=== PATIENT | female | born 1990 | race Caucasian/White ===

== ENCOUNTER 2021-03-25 09:11 | Outpatient (REF) | payer OTHER, SELFPAY ==
--- NOTE | ~2021-03-25 | XR_ITS ---
EXAMINATION: XR CHEST CLINICAL INFORMATION: Cough. COMPARISON: Chest 07/29/2014 TECHNIQUE: 2 views of the chest were obtained. FINDINGS: The lungs are well-expanded with increased haziness groundglass density throughout both lower lobes likely from underlying parenchymal inflammatory process.. The upper lungs are clear. The heart size and pulmonary vascularity is normal. No gross bony abnormality seen. XR/XR chest 2V IMPRESSION: Increased haziness throughout both lower lobe suspicious for lung infiltrative or inflammatory process. Findings could represent Covid Infiltrate.
[2021-03-25 09:54] LABS: MANUAL DIFF FLAG NO
[2021-03-25 10:01] LABS: Basophils Percent Auto 0.2 % (0-2); Eosinophils Absolute Auto 0.1 X10*3/uL (0.0-0.4); Eosinophils Percent Auto 1.3 % (0-4); Hematocrit 43.3 % (37-47); Hemoglobin 14.2 g/dl (12.0-16.0); Imm Gran Abs Auto 0.01 X10*3/uL (0.00-0.03); Imm Gran Pct Auto 0.2 % (0.0-0.4); Lymphocytes Absolute Auto 1.3 X10*3/uL (1.2-4.9); Lymphocytes Percent Auto 24.5 % (20-40); Mean Corpuscular HGB Conc 32.8 g/dl (31.0-35.0); Mean Corpuscular Hemoglobin 29.5 pg (27.0-33.0); Mean Corpuscular Volume 89.8 fL (80-98); Mean Platelet Volume 9.9 fL (9.4-12.3); Monocytes Absolute Auto 0.4 X10*3/uL (0.1-1.2); Monocytes Percent Auto 7.4 % (2-11); Neutrophils Absolute Auto 3.5 X10*3/uL (2.0-8.3); Neutrophils Percent Auto 66.4 % (45-73); Platelet Count 222 X10*3/uL (160-400); Red Blood Count 4.82 X10*6/uL (4.20-5.50); Red Cell Distribution Width 12.4 % (11.0-16.0); White Blood Count 5.3 X10*3/uL (4.8-10.8)
[2021-03-25 10:24] LABS: Alanine Aminotransferase 52 U/L (0-31); Albumin Level 4.4 g/dL (3.5-5.0); Alkaline Phosphatase 35 U/L (39-117); Anion Gap 14 (12-20); Aspartate Amino Transferase 38 U/L (5-31); Bilirubin Total 0.6 mg/dL (0.0-1.0); Blood Urea Nitrogen 9 mg/dL (9-16); Calcium 8.9 mg/dL (8.4-10.2); Carbon Dioxide 28 mmol/L (22-29); Chloride 106 mmol/L (96-108); Cholesterol 102 mg/dL; Estimated Glomerular Filt Rate > 60; Glucose Fasting 123 mg/dL (60-99); HDL Cholesterol 23 mg/dL; LDL Cholesterol Calculated 52 mg/dl; Potassium 4.6 mmol/L (3.3-5.1); Sodium 143 mmol/L (135-145); Total Protein 7.3 g/dL (6.5-8.0); Triglycerides 139 mg/dL
[2021-03-25 10:43] LABS: TSH reflex Free T4 1.96 uIU/mL (0.32-4.0)
== END 2021-03-25 09:12 | disposition home or self-care (01) ==
LOC: HO.LAB 09:11
PROVIDERS: Absent Provider Nurse Practitioner Family; PCP Internal Medicine; Visit Provider Internal Medicine
DX: R05 Cough (principal); E03.9 Hypothyroidism, unspecified; E78.5 Hyperlipidemia, unspecified; E66.9 Obesity, unspecified
CPT/HCPCS: 36415; 71046; 80053; 80061; 84443; 85025

== ENCOUNTER 2021-07-20 17:52 | Outpatient (REF) | payer OTHER, SELFPAY ==
[2021-07-20 18:42] LABS: Influenza A PCR NEGATIVE (Negative); Influenza B PCR NEGATIVE (Negative); Resp Syncy Virus RNA Qual PCR NEGATIVE (Negative); SARS COV2 PCR INHOUSE NEGATIVE (Negative)
== END 2021-07-20 17:53 | disposition home or self-care (01) ==
LOC: HO.LNP 17:52
PROVIDERS: Visit Provider Internal Medicine
DX: Z20.822 Contact with and (suspected) exposure to COVID-19 (principal); R43.9 Unspecified disturbances of smell and taste
CPT/HCPCS: 0241U

== ENCOUNTER 2022-12-15 10:20 | Outpatient (REF) | payer OTHER, SELFPAY ==
[2022-12-15 10:34] LABS: MANUAL DIFF FLAG NO
[2022-12-15 10:48] LABS: Basophils Percent Auto 0.5 % (0-2); Eosinophils Absolute Auto 0.3 X10*3/uL (0.0-0.4); Eosinophils Percent Auto 4.5 % (0-4); Hematocrit 40.3 % (37.0-47.0); Imm Gran Abs Auto 0.01 X10*3/uL (0.00-0.03); Imm Gran Pct Auto 0.2 % (0.0-0.4); Lymphocytes Absolute Auto 1.7 X10*3/uL (1.2-4.9); Lymphocytes Percent Auto 28.5 % (20-40); Mean Corpuscular HGB Conc 32.3 g/dl (31.0-35.0); Mean Corpuscular Volume 83.6 fL (80.0-98.0); Mean Platelet Volume 9.8 fL (9.4-12.3); Monocytes Absolute Auto 0.6 X10*3/uL (0.1-1.2); Monocytes Percent Auto 9.6 % (2-11); Neutrophils Absolute Auto 3.3 x10*3/uL (2.0-8.3); Neutrophils Percent Auto 56.7 % (45-73); Platelet Count 237 X10*3/uL (160-400); Red Blood Count 4.82 X10*6/uL (4.20-5.50); Red Cell Distribution Width 13.9 % (11.0-16.0); White Blood Count 5.8 X10*3/uL (4.8-10.8)
[2022-12-15 11:34] LABS: Alanine Aminotransferase 23 U/L (0-31); Albumin Level 4.2 g/dL (3.5-5.0); Alkaline Phosphatase 71 U/L (39-117); Anion Gap 14 (12-20); Aspartate Amino Transferase 21 U/L (5-31); Bilirubin Total 0.4 mg/dL (0.0-1.0); Blood Urea Nitrogen 14 mg/dL (9-16); Calcium 9.2 mg/dL (8.4-10.2); Carbon Dioxide 22 mmol/L (22-29); Chloride 108 mmol/L (96-108); Cholesterol 133 mg/dL; Estimated Glomerular Filt Rate > 60; Glucose Fasting 99 mg/dL (60-99); HDL Cholesterol 29 mg/dL; LDL Cholesterol Calculated 83 mg/dl; Potassium 4.2 mmol/L (3.3-5.1); Sodium 140 mmol/L (135-145); Total Protein 7.1 g/dL (6.5-8.0); Triglycerides 107 mg/dL
[2022-12-15 12:18] LABS: Folate 18.1 ng/mL (> or = 4.0); TSH reflex Free T4 2.17 uIU/mL (0.32-4.0); Vitamin B12 709 pg/mL (200-900); Vitamin D 25-OH Total 35.3 ng/mL (>30)
== END 2022-12-15 10:21 | disposition home or self-care (01) ==
LOC: HO.LAB 10:20
PROVIDERS: PCP Internal Medicine; Visit Provider Nurse Practitioner Family
DX: Z00.00 Encounter for general adult medical examination without abnormal findings (principal)
CPT/HCPCS: 36415; 80053; 80061; 82306; 82607; 82746; 84443; 85025

== ENCOUNTER 2023-05-24 15:35 | Outpatient (AMB) | payer OTHER, SELFPAY ==
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
[2023-05-24 15:42] VITALS: BP 132/72; PULSE 93; O2SAT 95; BMI 45.6
== END 2023-05-24 17:08 | disposition home or self-care (01) ==
PROVIDERS: PCP Internal Medicine; Visit Provider Internal Medicine
DX: M54.9 Dorsalgia, unspecified (principal)
CPT/HCPCS: 99213

== ENCOUNTER 2023-12-18 15:54 | Outpatient (AMB) | payer OTHER, SELFPAY ==
--- NOTE | 2023-12-18 16:00 | A.OFFPC_ITS ---
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: No Accompanied by: Self / Same As Patient Allergies aspirin [Aspirin] Allergy (Intermediate, Verified 12/18/23 16:11) swelling Sulfa (Sulfonamide Antibiotics) Allergy (Intermediate, Verified 12/18/23 16:11) Swelling sulfur Allergy (Intermediate, Verified 12/18/23 16:11) swelling Iodinated Contrast Media [Iodinated Contrast Media - IV Dye] Allergy (Mild, Verified 12/18/23 16:11) Patient described tongue thickness Medication List - Last Reconciled 12/18/23 by Kim Dawson MD No Known Home Meds Tobacco use date assessed: 12/18/23 Dental Screening Dental Screen Date: 12/18/23 Did you have a dental visit in the last 12 months?: Yes Did you have a dental problem in the last 6 months where you did not have access to dental care?: No Was dental information given to patient?: Patient has dentist HPI HPI Comments History of Present Illness Details This is a 33-year-old female with morbid obesity that comes for her physical exam. BMI is 41.5 and she declines weight loss surgery. I will start her on WEgovy for her weight anxiety effects were advised. Last labs were normal. No chest pain or shortness of breath. Pap smear was over 4 years ago. [facility] Medical History (Updated 12/18/23 @ 16:17 by Kim Dawson MD) Physical exam Morbid obesity Cough Sinusitis Eczema Obesity Surgical History Previous section Family History Father No problems noted. Mother Lupus Family/Other FH: mental illness Mental health disorder Daughter In good health Sister In good health Brother In good health Social History Housing: House Alcohol intake: never Patient Tobacco Use Status: Never used Tobacco e-Cigarette/Vaping Use: Never Used Second Hand Smoke Exposure: No service: No Current occupational status: unemployed Cognitive needs: No Hearing needs: No Vision needs: No Questionnaire PHQ-9 Over the last 2 weeks, how often have you been bothered by any of the following problems? 1. Little interest or pleasure in doing things: not at all 2. Feeling down, depressed, or hopeless: not at all 3. Trouble falling or staying asleep, or sleeping too much: not at all 4. Feeling tired or having little energy: not at all 5. Poor appetite or overeating: not at all 6. Feeling bad about yourself - or that you are a failure or have let yourself or your family down: not at all 7. Trouble concentrating on things, such as reading the newspaper or watching television: not at all 8. Moving or speaking so slowly that other people could have noticed. Or the opposite - being so fidgety or restless that you have been moving around a lot more than usual: not at all 9. Thoughts that you would be better off or of hurting yourself in some way: not at all Total score: 0 Depression Screening Interpretation: Negative Depression Screening Done: Yes 28307 - PHQ-9 Billing: Yes Source: Developed by Drs. Ephraim Danielson, Kay Hall, Ben Arellano and colleagues, with an educational marlon from [employer]. Thrive Questionnaire Date Thrive assessed: 12/18/23 I am a: Patient What is your living situation today?: I have a steady place to live Within the past 12 months, did the food you bought not last and you didn't have the money to get more?: Never true Within the past 12 months, did you worry whether your food would run out before you got money to buy more?: Never true Do you have trouble paying for medicines?: No Do you have trouble getting transportation to medical appointments?: No Do you have trouble paying your heating and electricity bill?: No Do you have trouble taking care of your child, family member or friend?: No Do you have trouble with day-to-day activities such as bathing, preparing meals, shopping, managing finances, etc.?: No Are you currently unemployed and looking for a job?: No Are you interested in more education?: No Please select the resources that you would like help with: None Currently or been in a relationship where the following occur: no concerns reported THRIVE Score: 0 AUDIT C Alcohol Use Questionnaire (AUDIT-C) 1. How often do you have a drink containing alcohol?: Never Total Score: 0 DEENA-7 AMB Questionnaire DEENA-7 Date DEENA - 7 assessed: 12/18/23 Feeling nervous, anxious, or on edge: 0 = Not at all Not being able to stop or control worryin = Not at all Worrying too much about different things: 0 = Not at all Trouble relaxin = Not at all Being so restless that it is hard to sit still: 0 = Not at all Becoming easily annoyed or irritable: 0 = Not at all Feeling afraid as if something awful might happen: 0 = Not at all Total DEENA-7 score (0-4 normal; 5-9 mild; 10-14 moderate; 15-21 severe): 0 Source: Developed by Drs. Ephraim Danielson, Kay Hall, Ben Arellano and colleagues, with an educational marlon from [employer]. DEENA-7 Assessment Billing DEENA-7 Assessment Tool: DEENA-7 Assessment 70792 Review of Systems Const All systems reviewed & are unremarkable except as noted in HPI and below Eyes Reports no additional complaints, Denies change in vision and Denies other visual disturbances Card Denies chest pain at rest, Denies chest pain with activity, Denies edema, Denies irregular heart rhythm, Denies claudication, Denies dyspnea, Denies dyspnea on exertion, Denies orthopnea, Denies paroxysmal nocturnal dyspnea and Denies slow heart rate Resp Denies cough, Denies dyspnea and Denies dyspnea on exertion GI Denies abdominal pain, Denies change in bowel habits, Denies excessive flatus, Denies nausea and Denies vomiting Denies urinary incontinence, Denies urinary hesitancy and Denies urinary urgency Physical exam (Primary Care) Vital Signs: Last Vital Signs BP 112/70 12/18/23 16:02 BMI result Body Mass Index 41.5 Tobacco/Smoking Status: Tobacco use Status Tobacco use date assessed 12/18/23 12/18/23 16:06 Patient Tobacco Use Status Never used Tobacco 12/18/23 16:00 e-Cigarette/Vaping Use Never Used 12/18/23 16:00 PHQ-9: PHQ-9 Score PHQ-9: Total score 0 12/18/23 16:06 Depression Screening Interpretation: Negative Thrive Assessment: Date of Thrive Assessment Date Thrive assessed 12/18/23 12/18/23 16:06 Currently or been in a relationship where the following occur: no concerns reported Const Orientation/consciousness: patient oriented x3 HENMT Head: Yes normal to inspection, Yes normocephalic and Yes atraumatic Ears: external ears normal Eyes General: appearance normal, both eyes and all related structures Eyelids: Yes eyelids normal Conjunctivae: conjunctivae normal Neck Neck: Yes normal visual inspection and Yes supple Resp Effort & Inspection: normal respiratory effort Auscultation: clear to auscultation bilaterally Cardio Jugular venous distension: no JVD Rate: regular rate Rhythm: regular rhythm Heart sounds: S1 normal heart sound present and S2 normal heart sound present GI Inspection: Yes normal to inspection Palpation (GI): Soft to palpation and nontender Auscultation: normal bowel sounds Skin General skin exam: no rashes or lesions noted Neuro General: patient oriented x3 and no focal motor deficits Extrem General: Yes full ROM Psych Appearance: grossly normal Assessment and Plan Assessment & Plan (1) Physical exam: Code(s): Z00.00 - Encounter for general adult medical examination without abnormal findings Plan: Repeat in a year. (2) Morbid obesity: Code(s): E66.01 - Morbid (severe) obesity due to excess calories Plan: Start Wegovy. BMI goal is less than 30. 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
[2023-12-18 16:02] VITALS: BP 112/70; BMI 41.5
== END 2023-12-18 16:24 | disposition home or self-care (01) ==
PROVIDERS: Visit Provider Internal Medicine
DX: Z00.00 Encounter for general adult medical examination without abnormal findings (principal); E66.01 Morbid (severe) obesity due to excess calories; Z68.41 Body mass index [BMI] 40.0-44.9, adult
CPT/HCPCS: 99395

== ENCOUNTER 2024-01-01 09:56 | Outpatient (AMB) | payer OTHER, SELFPAY ==
--- NOTE | 2024-01-01 10:06 | MHC.OFFVIS ---
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 Intake Note: Having pelvic pain, feels like something is moving when she is laying down to the side Pattern Hand Required: Yes Pattern Hand Language: Finnish Information Interpreted: non-clinical & clinical Nuclear Reactor Technician: Nuclear Reactor Technician Present (Aidyn) Allergies aspirin [Aspirin] Allergy (Intermediate, Verified 01/01/24 10:10) swelling Sulfa (Sulfonamide Antibiotics) Allergy (Intermediate, Verified 01/01/24 10:10) Swelling sulfur Allergy (Intermediate, Verified 01/01/24 10:10) swelling Iodinated Contrast Media [Iodinated Contrast Media - IV Dye] Allergy (Mild, Verified 01/01/24 10:10) Patient described tongue thickness Medication List - Last Reconciled 01/01/24 by Pilar Jacobs CNM No Known Home Meds Is last menstrual period known: Yes Last menstrual period: 12/29/23 Post menopausal: No HPI HPI 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,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: Details: 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 She has started trying to lose weight and has lost from about 280 something to 256 today and feels good about that she is trying to eat better and she is lifting weights and doing cardio as well. She last saw her primary care provider a couple of months ago. She says she used to get very very irregular periods but the last 4 months they have been coming more regular but they are light and short. She is working on getting healthier so she can have more energy to take care of her 2 children by herself as a single mother. Her 1st child also has autism she is bring her to the dentist today. She has been feeling something inside her and she told registered medical assistant she is feeling movement. On abdominal palpation there has a solid large abdominal mass right side of the abdomen. [facility] Medical History (Updated 01/01/24 @ 11:13 by Pilar Jacobs CNM) Physical exam Morbid obesity Cough Sinusitis Eczema Obesity Surgical History (Updated 01/01/24 @ 10:12 by RAMESH Messina) Hx of tubal ligation Previous section Family History Father No problems noted. Mother Lupus Family/Other FH: mental illness Mental health disorder Daughter In good health Sister In good health Brother In good health Social History Housing: House Alcohol intake: never Patient Tobacco Use Status: Never used Tobacco e-Cigarette/Vaping Use: Never Used Second Hand Smoke Exposure: No service: No Current occupational status: unemployed Cognitive needs: No Hearing needs: No Vision needs: No Female Reproductive History Menstrual Age of Menarche: 10 Date of last menstrual period: 12/29/23 control method: other (tubal ligation) Total pregnancies: 2 Full term: 2 Number of Living Children: 2 Physical Exam Vital Signs: Last Vital Signs BP 104/60 01/01/24 10:07 BMI result Body Mass Index 40.1 Const General: healthy appearing, comfortable, no acute distress, well developed and alert Nutritional Appearance: average body habitus and obese Orientation/consciousness: patient oriented x3 Limitations: no limitations HEENT Head: Yes normocephalic Neck Neck: Yes normal visual inspection Chest Chest palpation & inspection: normal inspection of the chest Breast/axilla inspection: normal inspection of the breasts and normal inspection of the axillae Breast/axilla palpation: normal palpation of the breasts and normal palpation of the axillae Resp Effort & Inspection: normal respiratory effort GI Other: There is palpable solid mass right side of abdomen. To right of umbilicus. Inspection: Yes normal to inspection, No Abdominal wall edema and No distended Palpation (GI): Soft to palpation, nontender and Other GI palpation findings present (Firm round abdominal mass to right of umbilicus orange sized.) Other: Limited by adipose however external exam within normal limits cervix multiparous pink smooth with normal-appearing yellowish mucus difficult to feel size of uterus but nontender adnexa nontender good tone with Kegel. General: Yes bladder normal to palpation External Female Exam: normal external appearance and normal appearance of the urethra Speculum Exam - Vagina: normal appearance of the vagina, normal palpation and normal vaginal discharge Speculum Exam - Cervix: normal appearance of the cervix, normal palpation and nontender Bimanual exam- vagina & uterus: normal bimanual exam, normal palpation, bladder normal to palpation, normal palpation, uterine mobility normal, No Cervical tenderness present, non-tender and no cervical motion tenderness Bimanual Exam- Adnexa, other: normal adnexae, no masses, normal and No adnexal tenderness Neuro General: patient oriented x3 Results Reviewed Results Reviewed: test done here in the office is negative. Assessment & Plan Assessment & Plan (1) Morbid obesity: Code(s): E66.01 - Morbid (severe) obesity due to excess calories Category: Medical (2) Abdominal mass: Code(s): R19.00 - Intra-abdominal and pelvic swelling, mass and lump, unspecified site Category: Medical (3) Encounter for gynecological examination with Papanicolaou smear of cervix: Code(s): Z01.419 - Encounter for gynecological examination (general) (routine) without abnormal findings Category: Medical (4) History of irregular menstrual cycles: Code(s): Z87.42 - Personal history of other diseases of the female genital tract Category: Medical (5) History of irregular menstrual cycles: Code(s): Z87.42 - Personal history of other diseases of the female genital tract Category: Medical (6) Screening for cervical cancer: Comment: 01/01/24 pap done...... Code(s): Z12.4 - Encounter for screening for malignant neoplasm of cervix Category: Medical Plan -----Discussed in this visit the following: healthy balanced diet, regular and consistent exercise, getting recommended health screens, doing the best she can for her particular health concerns, kegel exercises, pap smear screening and followup recommendations, mammography screening and SBE, normal changes in cycles in her life stage--- . I applauded her efforts at weight loss and her goals of improved health so she can be there for her 2 children and improve her health as well. She said that she had been screened for diabetes in everything was fine. Discussed in general terms the challenges of obesity and challenges for her health and efforts she is engaging in to manage this including dietary changes water intake attention to sleep inclusion of a regular exercise have it and dealing with the may need stressors of life that can contribute to obesity in general. Encouraged her to continue in all have her best efforts. She is aware all of these contributing factors as she attributes them to her weight gain as she was dealing with the stresses of parenting 2 young children with health challenges. I discussed the relationship between obesity and elevated hormonal levels and irregular menses she says her periods have improved since she started to lose weight and they been more normal so the last 4 months though on questioning at the very end it seemed that it is unclear how normal they are in length. ----- On physical exam there was a very firm abdominal mass right side that was mobile nontender. Out of an abundance of caution, despite her having had her tubes tied and reported no sexual relations for the last 2 years I had her do a test before leaving the office it was negative. I am ordering a pelvic ultrasound to assess for pelvic mass perhaps a fibroid may explain the finding if there has no clear finding I will have her follow-up with her primary care provider. We will have a follow-up visit after the ultrasound. Orders: Orders US pelvic and transvaginal Today E66.01 - Morbid (severe) obesity due to excess calories, R19.00 - Intra-abdominal and pelvic swelling, mass and lump, unspecified site, Z01.419 - Encounter for gynecological examination (general) (routine) without abnormal findings, Z12.4 - Encounter for screening for malignant neoplasm of cervix, Z87.42 - Personal history of other diseases of the female genital tract US abdomen complete Today R19.00 - Intra-abdominal and pelvic swelling, mass and lump, unspecified site, Z87.42 - Personal history of other diseases of the female genital tract Coding Level of Care Code New Pt Prev Care 18-39yr([id number] Diagnoses Morbid obesity E66.01 Abdominal mass R19.00 Encounter for gynecological examination with Papanicolaou smear of cervix Z01.419 History of irregular menstrual cycles Z87.42 Screening for cervical cancer Z12.4
[2024-01-01 10:07] VITALS: BP 104/60; BMI 40.1
== END 2024-01-01 12:14 | disposition home or self-care (01) ==
LOC: HO.HWSM 09:56
PROVIDERS: PCP Internal Medicine; Visit Provider Advanced Practice Midwife
DX: Z01.419 Encounter for gynecological examination (general) (routine) without abnormal findings (principal); R19.00 Intra-abdominal and pelvic swelling, mass and lump, unspecified site; E66.01 Morbid (severe) obesity due to excess calories; Z87.42 Personal history of other diseases of the female genital tract
CPT/HCPCS: 99385

== ENCOUNTER 2024-01-01 09:56 | Outpatient (REF) | payer OTHER, SELFPAY ==
[2024-01-02 09:44] LABS: Bacterial Vaginosis PCR NEGATIVE (Negative); Candida Group PCR NOT DETECTED (Not Detect); Candida glab krusei PCR NOT DETECTED (Not Detect); Trichomonas vaginalis PCR NOT DETECTED (Not Detect)
[2024-01-02 10:14] LABS: CT PCR NOT DETECTED (Not Detect.); NG PCR NOT DETECTED (Not Detect.)
[2024-01-12 00:38] LABS: HPV mRNA E6/E7 rflx Not Detected (Not Detected)
== END 2024-01-01 09:57 | disposition home or self-care (01) ==
LOC: HO.LNP 09:56
PROVIDERS: PCP Internal Medicine; Visit Provider Advanced Practice Midwife
DX: E66.01 Morbid (severe) obesity due to excess calories (principal); R19.00 Intra-abdominal and pelvic swelling, mass and lump, unspecified site; Z87.42 Personal history of other diseases of the female genital tract; Z12.4 Encounter for screening for malignant neoplasm of cervix; Z68.41 Body mass index [BMI] 40.0-44.9, adult
CPT/HCPCS: 0352U; 0353U; 87624; 88142; 99385

== ENCOUNTER 2024-01-02 11:36 | Outpatient (REF) | payer OTHER, SELFPAY ==
--- NOTE | ~2024-01-02 | US_ITS ---
EXAMINATION: US ABDOMEN COMPLETE CLINICAL INFORMATION: Abdominal mass. COMPARISON: CT scan abdomen and pelvis 09/27/2012 TECHNIQUE: Real-time imaging of the abdominal viscera. FINDINGS: PANCREAS: The pancreas is not well seen due to bowel gas. ABDOMINAL AORTA: The mid and distal segments are normal in caliber. The proximal abdominal aorta is mostly obscured by bowel gas. INFERIOR VENA CAVA: The inferior vena cava is obscured by bowel gas. LIVER: The liver is enlarged measuring 17.1 cm. The liver contour is normal. There is mild diffuse increased liver parenchymal echogenicity, consistent with mild hepatic steatosis. No focal hepatic lesion. There is no intrahepatic biliary duct dilatation seen. GALLBLADDER: Normal. The gallbladder is physiologically distended without evidence of stones, sludge, polyps, wall thickening or pericholecystic fluid. No sonographic Reyes's sign. COMMON BILE DUCT: Normal in caliber measuring 0.3 cm in diameter. RIGHT KIDNEY: 0.6 x 0.6 x 0.8 cm nonobstructing upper pole calculus is seen. No hydronephrosis. No focal parenchymal lesions. The kidney measures 11.8 cm in maximum dimension. LEFT KIDNEY: Normal. No hydronephrosis. No renal calculi or focal parenchymal lesions. The kidney measures 11.6 cm in maximum dimension. SPLEEN: The spleen is upper limits of normal in size. The spleen measures 13.0 cm in maximum dimension. FREE FLUID: None. US/US abdomen complete IMPRESSION: 1. Mild hepatic steatosis. 2. 0.8 cm nonobstructing calculus in the upper pole of the right kidney. 3. The pancreas, proximal abdominal aorta and inferior vena cava are obscured by bowel gas.
--- NOTE | ~2024-01-02 | US_ITS ---
EXAMINATION: US PELVIS CLINICAL INFORMATION: Pelvic mass. COMPARISON: CT pelvis 06/25/2013 TECHNIQUE: Ultrasound of the pelvis is performed using both transabdominal and transvaginal transducers along with Doppler. Transvaginal imaging is performed due to inadequate visualization transabdominally. FINDINGS: The uterus measures 8.4 x 4.5 x 5.1 cm. Endometrial stripe is 1.4 cm. The right ovary appears normal measuring 2.6 x 1.4 x 1.6 cm. The left ovary is not seen. There is a solid lobulated mass midline pelvis superior to the uterus with internal vascularity. The mass measures 14.7 x 9.0 x 16.5 cm. US/US pelvic and transvaginal IMPRESSION: 14.7 x 9.0 x 16.5 cm mass in the pelvis that appears separate from the uterus and right ovary. The left ovary is not seen. The mass could be left ovarian in origin or be obscuring the ovary. The mass is suspicious for neoplasm. Recommend CT of the abdomen and pelvis with intravenous and oral contrast to define the anatomic origin of the mass and guide management.
== END 2024-01-02 11:37 | disposition home or self-care (01) ==
LOC: HO.US 11:36
PROVIDERS: PCP Internal Medicine; Visit Provider Advanced Practice Midwife
DX: R19.00 Intra-abdominal and pelvic swelling, mass and lump, unspecified site (principal); Z87.42 Personal history of other diseases of the female genital tract; Z98.51 Tubal ligation status
CPT/HCPCS: 76700; 76830; 76856

== ENCOUNTER 2024-01-03 09:11 | Outpatient (REF) | payer OTHER, SELFPAY ==
[2024-01-03 10:25] LABS: HCG Quantitative 102 mIU/mL
[2024-01-03 10:26] LABS: Lactate Dehydrogenase 7452 U/L (122-220)
[2024-01-05 09:03] LABS: Carbohydrate Antigen 19-9 26 U/mL (<34)
[2024-01-05 13:23] LABS: Alpha Fetoprotein 3.6 ng/mL
[2024-01-09 08:53] LABS: CA-125 54 U/mL (<35)
[2024-01-11 18:57] LABS: Inhibin B 93 pg/mL
== END 2024-01-03 09:12 | disposition home or self-care (01) ==
LOC: HO.LAB 09:11
PROVIDERS: PCP Internal Medicine; Visit Provider Advanced Practice Midwife
DX: R19.00 Intra-abdominal and pelvic swelling, mass and lump, unspecified site (principal); Z98.51 Tubal ligation status; Z87.42 Personal history of other diseases of the female genital tract
CPT/HCPCS: 36415; 82105; 83520; 83615; 84702; 86301; 86304; 99212

== ENCOUNTER 2024-01-03 09:34 | Outpatient (AMB) | payer OTHER, SELFPAY ==
--- NOTE | 2024-01-03 09:36 | MHC.OFFVIS ---
Vital Signs 01/03/24 09:37 Height 5 ft 6.5 in BP 116/72 Intake Visit Reasons: Follow up Information Interpreted: clinical only Allergies aspirin [Aspirin] Allergy (Intermediate, Verified 01/03/24 09:41) swelling Sulfa (Sulfonamide Antibiotics) Allergy (Intermediate, Verified 01/03/24 09:41) Swelling sulfur Allergy (Intermediate, Verified 01/03/24 09:41) swelling Iodinated Contrast Media [Iodinated Contrast Media - IV Dye] Allergy (Mild, Verified 01/03/24 09:41) Patient described tongue thickness Is last menstrual period known: Yes Last menstrual period: 12/29/23 HPI HPI Follow up: Details: This was a 45 minute muim-zr-viue visit with patient reviewing her pelvic and abdominal ultrasounds from 01/02/2024 resulted my discovery of an abdominal mass at the visit on 01/01/2024. Please see the ultrasound details and discussion previous notes in the chart. I did review the ultrasound findings with ward helper yesterday afternoon when they arrived and his recommendations were followed for lab work, that was done this morning. I communicated with the patient yesterday after I receive the results and she went to the lab this morning and is here now to review the results and review plan for referral to [facility] oncology. At the time of the visit none of the lab results are yet back the 2 ultrasounds were reviewed with the patient in great detail shown her the print out additions in addition reviewed her history listed chart of allergic reaction to contrast dye. She does not remember it but apparently the she must have had an a CT in 2012 and she thinks perhaps this was information furnished by her mother about the allergic reaction. I reviewed detail results and findings and the concern for a neoplasm, cancer and the referral is in process to [facility] electric motor repairman Oncology and if she does not hear from by this afternoon she may call in to check on the status of the appointment at [facility] and wearing when it is happening and if she does not hear anything by then, she may call me again tomorrow to checkup on this. Discussed that what ever be necessary to manage her condition be better provided in tertiary institution with the necessary expertise and diagnostics available. ----At the end of the visit two of the lab results came in. The beta-hCG is elevated at 102. The patient is extremely clear that there is 0 chance of and she has not had sex in years. One other lab is back and is elevated and will need to be followed up w future providers as well, all others pending. [facility] Medical History Physical exam Morbid obesity Cough Sinusitis Eczema Obesity Surgical History Hx of tubal ligation Previous section Family History Father No problems noted. Mother Lupus Family/Other FH: mental illness Mental health disorder Daughter In good health Sister In good health Brother In good health Social History Housing: House Alcohol intake: never Patient Tobacco Use Status: Never used Tobacco e-Cigarette/Vaping Use: Never Used Second Hand Smoke Exposure: No service: No Current occupational status: unemployed Cognitive needs: No Hearing needs: No Vision needs: No Female Reproductive History Menstrual Age of Menarche: 10 Date of last menstrual period: 12/29/23 control method: permanent sterilization Total pregnancies: 2 Full term: 2 Date of last pap smear: 01/02/24 (pending,previous pap,unknown) Physical Exam Vital Signs: Last Vital Signs BP 116/72 01/03/24 09:37 Results Reviewed Results Reviewed: Patient: Esme Morales MR#: [id number] : 1990 Acct:[id number] Age/Sex: 33 / F ADM Date: 01/02/24 Loc: HO.US Attending Dr: Pilar Jacobs CNM Ordering Physician: Pilar Jacobs CNM Date of Service: 01/02/24 Procedure(s): US pelvic and transvaginal Accession Number(s): [id number] cc: Pilar Jacobs CNM; Kim Morgan MD~ EXAMINATION: US PELVIS CLINICAL INFORMATION: Pelvic mass. COMPARISON: CT pelvis 06/25/2013 TECHNIQUE: Ultrasound of the pelvis is performed using both transabdominal and transvaginal transducers along with Doppler. Transvaginal imaging is performed due to inadequate visualization transabdominally. FINDINGS: The uterus measures 8.4 x 4.5 x 5.1 cm. Endometrial stripe is 1.4 cm. The right ovary appears normal measuring 2.6 x 1.4 x 1.6 cm. The left ovary is not seen. There is a solid lobulated mass midline pelvis superior to the uterus with internal vascularity. The mass measures 14.7 x 9.0 x 16.5 cm. US/US pelvic and transvaginal IMPRESSION: 14.7 x 9.0 x 16.5 cm mass in the pelvis that appears separate from the uterus and right ovary. The left ovary is not seen. The mass could be left ovarian in origin or be obscuring the ovary. The mass is suspicious for neoplasm. Recommend CT of the abdomen and pelvis with intravenous and oral contrast to define the anatomic origin of the mass and guide management. Dictated By: Alok Yanes MD Signed By: <Electronically signed by Alok Yanes MD in OV> 01/02/24 1334 DD/ 1158 TD/TT: [place] [id number] Ultrasound Report Signed Patient: Esme Morales MR#: [id number] : 1990 Acct:[id number] Age/Sex: 33 / F ADM Date: 01/02/24 Loc: HO.US Attending Dr: Pilar Jacobs CNM Ordering Physician: Pilar Jacobs CNM Date of Service: 01/02/24 Procedure(s): US abdomen complete Accession Number(s): [id number] cc: Pilar Jacobs CNM; Kim Morgan MD~ EXAMINATION: US ABDOMEN COMPLETE CLINICAL INFORMATION: Abdominal mass. COMPARISON: CT scan abdomen and pelvis 09/27/2012 TECHNIQUE: Real-time imaging of the abdominal viscera. FINDINGS: PANCREAS: The pancreas is not well seen due to bowel gas. ABDOMINAL AORTA: The mid and distal segments are normal in caliber. The proximal abdominal aorta is mostly obscured by bowel gas. INFERIOR VENA CAVA: The inferior vena cava is obscured by bowel gas. LIVER: The liver is enlarged measuring 17.1 cm. The liver contour is normal. There is mild diffuse increased liver parenchymal echogenicity, consistent with mild hepatic steatosis. No focal hepatic lesion. There is no intrahepatic biliary duct dilatation seen. GALLBLADDER: Normal. The gallbladder is physiologically distended without evidence of stones, sludge, polyps, wall thickening or pericholecystic fluid. No sonographic Reyes's sign. COMMON BILE DUCT: Normal in caliber measuring 0.3 cm in diameter. RIGHT KIDNEY: 0.6 x 0.6 x 0.8 cm nonobstructing upper pole calculus is seen. No hydronephrosis. No focal parenchymal lesions. The kidney measures 11.8 cm in maximum dimension. LEFT KIDNEY: Normal. No hydronephrosis. No renal calculi or focal parenchymal lesions. The kidney measures 11.6 cm in maximum dimension. SPLEEN: The spleen is upper limits of normal in size. The spleen measures 13.0 cm in maximum dimension. FREE FLUID: None. US/US abdomen complete IMPRESSION: 1. Mild hepatic steatosis. 2. 0.8 cm nonobstructing calculus in the upper pole of the right kidney. 3. The pancreas, proximal abdominal aorta and inferior vena cava are obscured by bowel gas. Dictated By: Yoselin Peterson MD Signed By: <Electronically signed by Yoselin Peterson MD in OV> 01/02/24 1441 DD/ 1220 TD/TT: Technical Program Manager: Assessment & Plan Assessment & Plan (1) Pelvic mass: Code(s): R19.00 - Intra-abdominal and pelvic swelling, mass and lump, unspecified site Category: Medical (2) Hx of tubal ligation: Code(s): Z98.51 - Tubal ligation status Category: Surgical (3) History of irregular menstrual cycles: Code(s): Z87.42 - Personal history of other diseases of the female genital tract Category: Medical (4) Abdominal mass: Code(s): R19.00 - Intra-abdominal and pelvic swelling, mass and lump, unspecified site Category: Medical Plan This was a 45 minute quep-yf-napa visit with patient reviewing her pelvic and abdominal ultrasounds from 01/02/2024 resulted my discovery of an abdominal mass at the visit on 01/01/2024. Please see the ultrasound details and discussion previous notes in the chart. I did review the ultrasound findings with ward helper yesterday afternoon, when they arrived and his recommendations were followed for lab work, that was done this morning. I communicated with the patient yesterday after I received the results and she went to the lab this morning and is here now to review the results and review plan for referral to [facility] oncology. At the time of the visit none of the lab results are yet back. The 2 ultrasounds were reviewed with the patient in great detail. I showed her the print outs. in addition I reviewed her history, and listed in the chart of allergic reactions is allergy to contrast dye. She does not remember it, but apparently the she must have had an a CT in 2012 and she thinks perhaps this was information was furnished by her mother about the allergic reaction. I reviewed detailed results and findings and the concern for a neoplasm, cancer, and that the referral is in process to [facility] Optical Advisor Oncology and if she does not hear from us by this afternoon she may call in to check on the status of the appointment at [facility] and where and when it is happening, and if she does not hear anything by then, she may call me again tomorrow to checkup on this. Discussed that what ever be necessary to manage her condition could be better provided in tertiary institution with the necessary expertise and diagnostics available. ----At the end of the visit two of the lab results came in. The beta-hCG is elevated at 102. The patient is extremely clear that there is 0 chance of and she has not had sex in years. One other lab is back and is elevated and will need to be followed up w future providers as well, all others pending. Coding Level of Care Code Est Pt Level 4 (27861) Diagnoses Pelvic mass R19.00 Hx of tubal ligation Z98.51 History of irregular menstrual cycles Z87.42 Abdominal mass R19.00 Time Spent (min) 45 Comment 100 %, spent face to face reviewing hx, findings, and plan
[2024-01-03 09:37] VITALS: BP 116/72
== END 2024-01-03 11:01 | disposition home or self-care (01) ==
LOC: HO.HWSM 09:34
PROVIDERS: PCP Internal Medicine; Visit Provider Advanced Practice Midwife
DX: R19.00 Intra-abdominal and pelvic swelling, mass and lump, unspecified site (principal); Z98.51 Tubal ligation status; Z87.42 Personal history of other diseases of the female genital tract
CPT/HCPCS: 99214

== ENCOUNTER 2024-07-09 15:47 | Outpatient (AMB) | payer OTHER, SELFPAY ==
[2024-07-09 15:55] VITALS: BP 130/72; BMI 41.3
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
== END 2024-07-09 16:23 | disposition home or self-care (01) ==
PROVIDERS: PCP Internal Medicine; Visit Provider Internal Medicine
DX: M54.2 Cervicalgia (principal); E66.01 Morbid (severe) obesity due to excess calories; C56.9 Malignant neoplasm of unspecified ovary; Z68.41 Body mass index [BMI] 40.0-44.9, adult

== ENCOUNTER → 2024-07-09 15:47 | Outpatient (BNVA) | payer OTHER, SELFPAY | PROVIDERS: PCP Internal Medicine; Visit Provider Internal Medicine | DX: M54.2 Cervicalgia (principal); E66.01 Morbid (severe) obesity due to excess calories; C56.9 Malignant neoplasm of unspecified ovary | CPT/HCPCS: 99212 ==

== ENCOUNTER 2024-09-16 09:58 | Outpatient (AMB) | payer MEDICAID, SELFPAY ==
--- OUTSIDE RECORDS SUMMARY | 2024-09-16 10:01 | XMS_ITS | Clinical Summary ---
Author Organization [facility] Address [address] [place] [address] Care Team Providers Care System Administrator Name Role Phone Kim Dawson MD Primary Care Provider [phone] Surgical History Surgery Date Site/Laterality Comments COLPOSCOPY 09/2017 PROCEDURE: [place] COLPOSCOPY ENTIRE VAGINA W/VAGINA/CERVIX BX SECTION PROCEDURE: KS DELIVERY ONLY TUBAL LIGATION PROCEDURE: HISTORICAL TUBAL LIGATION Medical History Medical History Date Comments Phlebitis of deep vein of th igh, left (CMS/HCC) 03/22/2018 DX:Phlebitis of deep vein of thigh, left (HCC); COMMENT: Superficial phlebitis in the medial left thigh Abnormal Pap smear of cervix 2017 DX: Abnormal Pap smear of cervix; COMMENT: LSIL. colpo needed Varicose vein of leg DX:Varicose vein of leg; COMMENT: left inner thigh Obese 03/06/2019 DX:Obese; COMMEN T: BMI 40.7 delivery 02/2018 DX: deli very; COMMENT: labor and ROM at 35w2d c/b retained placenta and PPH hematoma 2017 DX:Postpartu m hematoma Gestational diabetes 03/18/2019 DX:Gestatio nal diabetes; COMMENT: Pt currently 10w1d . Early 1 hr = >200 1 hour test at 24-28 wks: if 1 hr >135, perform 3 hour, if 1 hr >200, patient is diagnosed with GDM Diabetic teaching 4 times per day testing (fasting and 2 hour postprandial) Diabetic teaching. Appt: 03-19-19. Pt went. Report sent to scanning 4 times per day testing (fasting and 2 hour postprandial) Goals: fasting <95, 2 * History of hemorr zbigniew, currently 03/17/2019 DX:History of hem orrhage, currently ; COMMENT: 2018 Delivery c/b retained placenta (placenta spontaneously delivered on the way to the OR for D&C) , PPH with EBL 1900. Social History Tobacco Use Types Packs/Day Years Used Date Smoking Tobacco: Never Smokeless Tobacco: Never Alcohol Use Standard Drinks/Week Comments No 0 (1 standard drink = 0.6 oz pur e alcohol) Comments Unknown Sex and Gender Information Value Date Recorded Sex Assigned at Not on file Legal Sex Female 11:17 AM EST Gender Identity Not on file Sexual Orientation Not on file Obstetrics History Last Filed Vital Signs Vital Sign Reading Time Taken Comments Blood Pressure 124/85 10/12/2021 3:07 PM EDT Pulse 97 10/12/2021 3:07 PM EDT Temperature - - Respiratory Rate - - Oxygen Saturation - - Inhaled Oxygen Concentration - - Weight 134 kg (296 lb) 10/12/2021 3:07 PM EDT Height 170.2 cm (5' 7 ) 10/12/2021 3:07 PM EDT Body Mass Index 46.36 10/12/2021 3:07 PM EDT Plan of Treatment Health Maintenance Due Date Last Done Comments Hepatitis B Vaccines (1 of 3 - 19+ 3-dose series) 2007 Cervical Cancer Screening: P ap Smear 2009 Depression Screening 06/28/2022 HIV Screening 06/28/2022 Hepatitis C Screening 06/28/2022 Social Influencers of Health Screening 06/28/2022 COVID-19 Vaccine (1 - 2023-2 5 season) 2024 Influenza Vaccine (#1) 2024 05/21/2019 DTaP,Tdap,and Td Vaccines (3 - Td or Tdap) 07/03/2029 07/03/2019, 02/23/2018 HIB Vaccines Aged Out No longer eligi ble based on patient's age to complete this topic HPV Vaccines Aged Out No longer eligi ble based on patient's age to complete this topic Hepatitis A Vaccines Aged Out No long er eligible based on patient's age to complete this topic IPV Vaccines Aged Out No longer eligi ble based on patient's age to complete this topic MMR Vaccines Aged Out No longer eligi ble based on patient's age to complete this topic Meningococcal ACWY Vaccine Aged Out N o longer eligible based on patient's age to complete this topic Meningococcal B Vacine Aged Out No lo nger eligible based on patient's age to complete this topic Pneumococcal Vaccine: Pediatrics (0 to 5 Years) and At-Risk Patients (6 to 64 Years) Aged Out No longer eligible b ased on patient's age to complete this topic RSV Immunization Patients Under 20 months Aged Out No longer eligible b ased on patient's age to complete this topic Varicella Vaccines Aged Out No longer eligible based on patient's age to complete this topic Care Teams System Administrator Relationship Specialty Start Date End Date Kim Dawson MD [address] [place] [address] , [address] Physician Associ D/B/A: [facility] JUDY Sommer PCP - General Internal Medicine 07/03/19
--- OUTSIDE RECORDS SUMMARY | 2024-09-16 10:01 | XMS_ITS | Clinical Summary ---
Author Organization [facility] Address [address] [place] [address] Phone Care Team Providers Care Rug Inspector Helper Name Role Phone Kim Morgan MD Primary Care Provider [phone] Allergies Active Allergy Reactions Criticality Noted Date Comments Aspirin Swelling High 03/15/2024 Throat swelling Shellfish Allergy Swelling High 03/15/2024 Throat swelling Sulfadiazine Swelling High 03/15/2024 Throat swelling Medications prochlorperazin e (COMPAZINE) 5 MG tablet Take 5 mg by mouth every 6 (six) hours if needed for nausea or vomiting Active oxyCODONE (OXY-IR) 5 MG immediate release capsule Take 5 mg by mouth every 4 (four) hours if needed for moderate pain Active ibuprofen (ADVIL,MOTRIN) 800 MG tablet Take 800 mg by mouth every 6 (six) hours if needed for mild pain Active ondansetron (ZOFRAN) 4 MG tablet Take 4 mg by mouth every 8 (eight) hours if needed for nausea or vomiting Active loratadine (CLARITIN) 5 MG chewable tablet Chew 5 mg 1 (one) time each day Active Active Problems Problem Noted Date Diagnosed Date Eczema 03/22/2024 Sinusitis 03/22/2024 Ovarian cancer 03/15/2024 Obese 03/15/2024 Social History Tobacco Use Types Packs/Day Years Used Date Smoking Tobacco: Never Smokeless Tobacco: Never Tobacco Cessation:Counseling Given: Not Answered Alcohol Use Standard Drinks/Week Comments Never 0 (1 standard drink = 0.6 oz pur e alcohol) Comments Unknown Sex and Gender Information Value Date Recorded Sex Assigned at Not on file Legal Sex Female 11:36 AM EDT Gender Identity Not on file Sexual Orientation Not on file Last Filed Vital Signs Vital Sign Reading Time Taken Comments Blood Pressure 112/75 03/22/2024 8:35 AM EDT Pulse 91 03/22/2024 8:35 AM EDT Temperature 36.6 ??C (97.9 ??F) 03/22/2024 8:35 AM ED T Respiratory Rate 16 03/22/2024 8:35 AM EDT Oxygen Saturation 98% 03/22/2024 8:35 AM EDT Inhaled Oxygen Concentration - - Weight 112 kg (246 lb) 03/22/2024 8:35 AM EDT Height 167.6 cm (5' 6 ) 03/22/2024 8:35 AM EDT Body Mass Index 39.71 03/22/2024 8:35 AM EDT Plan of Treatment Health Maintenance Due Date Last Done Comments Pneumococcal Vaccine: Pediat rics (0 to 5 Years) and At-Risk Patients (6 to 64 Years) (1 of 2 - PCV) 1994 Hepatitis B Vaccine (1 of 3 - 19+ 3-dose series) 07/31 Influenza Vaccine (#1) 2024 05/21/2019 Insurance MEDICAID Care Teams Rug Inspector Helper Relationship Specialty Start Date End Date Kim Morgan MD [address] [place], [place] PCP - General Internal Medicine 03/22/24
--- NOTE | 2024-09-16 10:03 | MHC.PC.OV ---
Vital Signs 09/16/24 10:05 Height 5 ft 5.6 in Weight 264 lb 6 oz BMI 43.2 BP 110/70 Blood Pressure Location Lt brachial Position Sitting Pulse 89 Pulse Source Pulse Oximeter Temp 97.1 F Temp Source Temporal Artery Scan Pulse Oximetry (%) 97 Oxygen Delivery Method Room Air Intake Visit Reasons: feels pain in he stomach she is a cancer patient Intake Note: Dr. Palmer's patient is here for evaluation of a mass near the navel, causing discomfort for one month. Special Certificate Dictator Required: Yes Special Certificate Dictator Language: Line Maintainer Section Name: used tablet-ID #[id number] Accompanied by: Self / Same As Patient Allergies aspirin [Aspirin] Allergy (Intermediate, Verified 09/16/24 10:14) swelling Sulfa (Sulfonamide Antibiotics) Allergy (Intermediate, Verified 09/16/24 10:14) Swelling sulfur Allergy (Intermediate, Verified 09/16/24 10:14) swelling Iodinated Contrast Media [Iodinated Contrast Media - IV Dye] Allergy (Mild, Verified 09/16/24 10:14) Patient described tongue thickness Tobacco use date assessed: 12/18/23 Dental Screening Dental Screen Date: 12/18/23 HPI feels pain in he stomach she is a cancer patient HPI Details Patient is a 34-year-old female here today for problem visit. 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 She is followed by [facility] in his getting surveillance abdominal and pelvic imaging. She reports over the last month noting a fullness/ lump above her umbilicus that has been more tender as of late. She reports she is using the bathroom okay though has to use laxatives. He reports the lump has gotten bigger and is concerned. She did get a CT of her abdomen last month which did not show any reoccurrence of her cancer though did show a fat containing umbilical hernia. [facility] Medical History (Updated 09/16/24 @ 10:26 by Artemio Doll PA-C) Physical exam Morbid obesity Cough Sinusitis Eczema Obesity Surgical History History of total abdominal hysterectomy Hx of tubal ligation Previous section Family History Father No problems noted. Mother Lupus Family/Other FH: mental illness Mental health disorder Daughter In good health Sister In good health Brother In good health Social History Housing: House Alcohol intake: never Patient Tobacco Use Status: Never used Tobacco e-Cigarette/Vaping Use: Never Used Second Hand Smoke Exposure: No service: No Current occupational status: unemployed Cognitive needs: No Hearing needs: No Vision needs: No Female Reproductive History Menstrual Age of Menarche: 10 Questionnaire PHQ-9 Over the last 2 weeks, how often have you been bothered by any of the following problems? 1. Little interest or pleasure in doing things: not at all 2. Feeling down, depressed, or hopeless: not at all 3. Trouble falling or staying asleep, or sleeping too much: not at all 4. Feeling tired or having little energy: not at all 5. Poor appetite or overeating: not at all 6. Feeling bad about yourself - or that you are a failure or have let yourself or your family down: not at all 7. Trouble concentrating on things, such as reading the newspaper or watching television: not at all 8. Moving or speaking so slowly that other people could have noticed. Or the opposite - being so fidgety or restless that you have been moving around a lot more than usual: not at all 9. Thoughts that you would be better off or of hurting yourself in some way: not at all Total score: 0 Depression Screening Interpretation: Negative Depression Screening Done: Yes 98375 - PHQ-9 Billing: Yes Source: Developed by Drs. Ephraim Danielson, Kay Hall, Ben Arellano and colleagues, with an educational marlon from [employer]. Thrive Questionnaire Date Thrive assessed: 09/16/24 I am a: Patient What is your living situation today?: I have a steady place to live Within the past 12 months, did the food you bought not last and you didn't have the money to get more?: Never true Within the past 12 months, did you worry whether your food would run out before you got money to buy more?: Never true Do you have trouble paying for medicines?: No Do you have trouble getting transportation to medical appointments?: No Do you have trouble paying your heating and electricity bill?: No Do you have trouble taking care of your child, family member or friend?: No Do you have trouble with day-to-day activities such as bathing, preparing meals, shopping, managing finances, etc.?: No Are you currently unemployed and looking for a job?: No Are you interested in more education?: No Please select the resources that you would like help with: None Currently or been in a relationship where the following occur: No concerns reported THRIVE Score: 0 AUDIT C Alcohol Use Questionnaire (AUDIT-C) 1. How often do you have a drink containing alcohol?: Never 3. How often do you have six or more drinks on one occasion?: Never Total Score: 0 DEENA-7 AMB Questionnaire DEENA-7 Date DEENA - 7 assessed: 09/16/24 Feeling nervous, anxious, or on edge: 0 = Not at all Not being able to stop or control worryin = Not at all Worrying too much about different things: 0 = Not at all Trouble relaxin = Not at all Being so restless that it is hard to sit still: 0 = Not at all Becoming easily annoyed or irritable: 0 = Not at all Feeling afraid as if something awful might happen: 0 = Not at all Total DEENA-7 score (0-4 normal; 5-9 mild; 10-14 moderate; 15-21 severe): 0 Source: Developed by Drs. Ephraim Danielson, Kay Hall, Ben Arellano and colleagues, with an educational marlon from [employer]. DEENA-7 Assessment Billing DEENA-7 Assessment Tool: DEENA-7 Assessment 05653 Review of Systems Const Denies headache(s) Eyes Denies loss of vision ENT Denies vertigo, Denies dizziness, Denies headache(s) and Denies sore throat Card Denies chest pain, Denies leg edema and Denies lightheadedness Resp Denies cough, Denies hemoptysis and Denies wheezing GI Denies abdominal pain, Denies melena, Denies constipation, Denies diarrhea and Denies vomiting Denies urinary frequency, Denies dysuria and Denies urinary urgency Musc Denies arthralgias, Denies joint swelling, Denies numbness and Denies tingling Neuro Denies Abnormal speech present, Denies behavioral changes, Denies vertigo, Denies dizziness, Denies headache(s), Denies loss of vision, Denies memory loss, Denies numbness and Denies tingling Psych Denies anxiety, Denies behavioral changes, Denies depression, Denies memory loss and Denies panic attacks Salbador/Lymph Denies easy bleeding and Denies easy bruising Aller/Immun Denies wheezing Physical exam (Primary Care) Vital Signs: Last Vital Signs Temp 97.1 F 09/16/24 10:05 Pulse 89 09/16/24 10:05 Pulse Ox 97 09/16/24 10:05 Oxygen Delivery Method Room Air 09/16/24 10:05 BMI result Body Mass Index 43.2 Tobacco/Smoking Status: Tobacco use Status Tobacco use date assessed 12/18/23 09/16/24 10:03 Patient Tobacco Use Status Never used Tobacco 09/16/24 10:03 e-Cigarette/Vaping Use Never Used 09/16/24 10:03 PHQ-9: PHQ-9 Score PHQ-9: Total score 0 09/16/24 10:17 Depression Screening Interpretation: Negative Thrive Assessment: Date of Thrive Assessment Date Thrive assessed 09/16/24 09/16/24 10:17 Currently or been in a relationship where the following occur: No concerns reported Const General: healthy appearing, no acute distress, alert and awake Nutritional Appearance: well nourished Orientation/consciousness: oriented to person, oriented to place and oriented to time HENMT Ears: TM's normal bilaterally General nose exam: Normal nasal mucous membranes and turbinates present Eyes Conjunctivae: conjunctivae normal Sclerae: sclerae normal Pupils: Equal, round and reactive pupils present Neck Neck: Yes no lymphadenopathy and Yes no JVD Thyroid: Thyroid normal Carotids: no bruits Resp Effort & Inspection: normal respiratory effort and not tachypneic Auscultation: no crackles, no rales, no rhonchi and no wheezes Cardio Rate: regular rate Rhythm: regular rhythm Heart sounds: no murmurs and normal S1 and S2 GI Palpation (GI): Soft to palpation, nontender, no hepatomegaly and no splenomegaly Auscultation: normal bowel sounds Abdomen image: 1. LARGE FULLNESS IN THE AREA OUTLINED. MILD TENDERNESS TO PALPATION Skin General skin exam: no rashes or lesions noted and dry skin Neuro General: oriented to person, oriented to place and oriented to time Cranial nerves: Yes Equal, round and reactive pupils present Speech: No Abnormal speech present Gait exam (Neuro): Normal gait present Motor exam (neuro): no tremor noted Extrem Right upper extremity: full ROM Left upper extremity: full ROM Right lower extremity: full ROM; no edema Left lower extremity: full ROM; no edema Psych Mental Status: mental status grossly normal Speech and movement: Normal speech and movement present Affect: normal affect Attitude: cooperative Thought process: Normal thought process present Coding Level of Care Code Est Pt Level 4 (58552) Diagnoses Umbilical hernia with obstruction, without gangrene K42.0 Obstruction and gangrene presence: with obstruction but without gangrene Additional Codes DEENA-7 Assessment Billing - DEENA-7 Assessment Tool: DEENA-7 Assessment 04105 ([id number]) PHQ-9 - 95690 - PHQ-9 Billing: Yes ([id number]) Assessment & Plan Assessment & Plan (1) Umbilical hernia: Code(s): K42.9 - Umbilical hernia without obstruction or gangrene Category: Medical Qualifiers: Obstruction and gangrene presence: with obstruction but without gangrene Qualified Code(s): K42.0 - Umbilical hernia with obstruction, without gangrene Plan: As per HPI CT scan of abdomen done in July at [facility] showing a fat containing umbilical hernia per patient reports the lump has been getting larger and a little bit more tender as of late. Will refer to general surgeon for evaluation and possible surgical intervention
[2024-09-16 10:05] VITALS: BP 110/70; PULSE 89; TEMP 36.2; O2SAT 97; BMI 43.2
== END 2024-09-16 10:37 | disposition home or self-care (01) ==
PROVIDERS: PCP Internal Medicine; Visit Provider Physician Assistant
DX: K42.0 Umbilical hernia with obstruction, without gangrene (principal)

== ENCOUNTER → 2024-09-16 09:58 | Outpatient (BNVA) | payer MEDICAID, SELFPAY | PROVIDERS: PCP Internal Medicine; Visit Provider Physician Assistant | DX: K42.0 Umbilical hernia with obstruction, without gangrene (principal) | CPT/HCPCS: 96127; 99212 ==

== ENCOUNTER 2024-10-15 08:54 | Outpatient (AMB) | payer MEDICAID, SELFPAY ==
--- NOTE | 2024-10-15 08:56 | MHC.OFFVIS ---
Vital Signs 10/15/24 09:03 Height 5 ft 6 in Weight 268 lb 6 oz BMI 43.3 BP 140/84 H Blood Pressure Location Lt brachial Position Sitting Pulse 78 Intake Visit Reasons: umbilical hernia Intake Note: Patient is seen in office for evaluation and treatment of an umbilical hernia. Pt c/o: onset one month ago, had surgery done in the area in 12/2023 for excision of an ovary, feels the lump has some what increase has discomfort, some constipation, denies n/v/d CT:08/22/24 Ceo & Board Director Required: Yes Ceo & Board Director Language: Civil Division Commander Deputy Sheriff Services: Ceo & Board Director Present Ceo & Board Director Name: Isis CHANDLER Information Interpreted: non-clinical & clinical Telecommunication Engineer: Telecommunication Engineer Present Accompanied by: Self / Same As Patient Allergies aspirin [Aspirin] Allergy (Intermediate, Verified 10/15/24 09:02) swelling Sulfa (Sulfonamide Antibiotics) Allergy (Intermediate, Verified 10/15/24 09:02) Swelling sulfur Allergy (Intermediate, Verified 10/15/24 09:02) swelling Iodinated Contrast Media [Iodinated Contrast Media - IV Dye] Allergy (Mild, Verified 10/15/24 09:02) Patient described tongue thickness Medication List - Last Reconciled 10/15/24 by Armin Sams MD No Known Home Meds HPI Comments Details: 34-year-old female patient presenting for evaluation of an umbilical hernia. The hernia developed after undergoing abdominal hysterectomy with bilateral salpingo-oophorectomy for ovarian cancer in 01/18/2024. She subsequently underwent chemotherapy and treatment of the ovarian cancer. She began to note a lump in the incision above the umbilicus which has increased in size and causes occasional discomfort. She denies nausea, vomiting, fever, chills, diarrhea, or constipation. The hernia does reduce when in the supine position but immediately returns in the standing position. She presents today to discuss repair of this incisional hernia. [facility] Medical History Physical exam Morbid obesity Cough Sinusitis Eczema Obesity Surgical History History of total abdominal hysterectomy Hx of tubal ligation Previous section Family History Father No problems noted. Mother Lupus Family/Other FH: mental illness Mental health disorder Daughter In good health Sister In good health Brother In good health Social History Housing: House Alcohol intake: never Patient Tobacco Use Status: Never used Tobacco e-Cigarette/Vaping Use: Never Used Second Hand Smoke Exposure: No service: No Current occupational status: unemployed Cognitive needs: No Hearing needs: No Vision needs: No Female Reproductive History Menstrual Age of Menarche: 10 Review of Systems Const All systems reviewed & are unremarkable except as noted in HPI and below Physical Exam Vital Signs: Last Vital Signs Pulse 78 10/15/24 09:03 BP 140/84 H 10/15/24 09:03 BMI result Body Mass Index 43.3 Const General: cooperative and no acute distress Nutritional Appearance: well nourished Orientation/consciousness: patient oriented x3 Limitations: no limitations HEENT Head: Yes normocephalic and Yes atraumatic Ears: hearing grossly normal bilaterally Resp Effort & Inspection: normal respiratory effort, no audible wheezes, no cough and no respiratory distress Cardio Jugular venous distension: no JVD GI Other: Soft, nondistended, midline incision starting from just above the umbilicus down to pubis. In the standing position a fullness is noted in the supraumbilical region which increases with Valsalva maneuvers but then reduces in the supine position. Actual defect measures approximately 3 cm in diameter. There is no other skin change of redness or ulceration. Inspection: Yes normal to inspection Abdomen image: 1. 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 The hernias reducible in the supine position. I recommended repair of this incisional hernia with mesh and after discussion of the procedure, risks, and alternatives, she consents to the surgery. This will be scheduled as a short-stay surgery at her earliest convenience. Coding Level of Care Code New Pt Level 4 (85511) Diagnoses Incisional hernia, without obstruction or gangrene K43.2 Obstruction and gangrene presence: without obstruction or gangrene
[2024-10-15 09:03] VITALS: BP 140/84; PULSE 78; BMI 43.3
--- OUTSIDE RECORDS SUMMARY | 2024-10-15 09:25 | XMS_ITS | Clinical Summary ---
Author Organization [facility] Address [address] [place] [address] Phone Care Team Providers Care Scientific Writer Name Role Phone Kim Morgan MD Primary Care Provider [phone] Allergies Active Allergy Reactions Criticality Noted Date [...] Influenza Vaccine (#1) 2024 05/21/2019 [place] [address] Care Teams Scientific Writer Relationship Specialty Start Date End Date Kim Morgan MD [address] [place], [place] PCP - General Internal Medicine 03/22/24
--- OUTSIDE RECORDS SUMMARY | 2024-10-15 09:25 | XMS_ITS | Clinical Summary ---
Author Organization [facility] Address [address] [place] [address] Care Team Providers Care Trust Administrative Assistant Name Role Phone Kim Dawson MD Primary Care Provider [phone] Surgical History Surgery Date Site/Laterality Comments COLPOSCOPY 09/2017 PROCEDURE: RI COLPOSCOPY ENTIRE VAGINA W/VAGINA/CERVIX BX SECTION PROCEDURE: RI DELIVERY ONLY TUBAL LIGATION PROCEDURE: HISTORICAL TUBAL [...] age to complete this topic Care Teams Trust Administrative Assistant Relationship Specialty Start Date End Date Kim Dawson MD [address] [place] [address] , [address] Physician Associ D/B/A: [facility] JUDY Sommer PCP - General Internal Medicine 07/03/19
== END 2024-10-15 09:18 | disposition home or self-care (01) ==
LOC: HO.HGS 08:54
PROVIDERS: PCP Internal Medicine; Visit Provider Surgery
DX: K43.2 Incisional hernia without obstruction or gangrene (principal)
CPT/HCPCS: 99204

== ENCOUNTER → 2024-10-15 08:54 | Outpatient (BNVA) | payer OTHER, SELFPAY | PROVIDERS: PCP Internal Medicine; Visit Provider Surgery | DX: K43.2 Incisional hernia without obstruction or gangrene (principal) | CPT/HCPCS: 99202 ==

== ENCOUNTER 2024-10-16 10:00 | Outpatient (AMB) | payer OTHER, SELFPAY ==
[2024-10-16 10:39] VITALS: BP 136/84; PULSE 82; TEMP 36.4; O2SAT 98; BMI 43.6
--- NOTE | 2024-10-16 10:39 | MHC.OFFWIV ---
Intake Vital Signs 10/16/24 10:39 Height 5 ft 6 in Weight 270 lb 4 oz BMI 43.6 BP 136/84 Blood Pressure Location Lt brachial Position Sitting Pulse 82 Pulse Source Pulse Oximeter Temp 97.6 F Temp Source Oral Pulse Oximetry (%) 98 Oxygen Delivery Method Room Air Intake Visit Reasons: EP pain on both ears Intake Note: Pt presents to the office today for c/o bilateral ear pain that comes and goes x2 months. Pt denies any other symptoms at this time. Patient Tobacco Use Status: Never used Tobacco Allergies aspirin [Aspirin] Allergy (Intermediate, Verified 10/16/24 10:40) swelling Sulfa (Sulfonamide Antibiotics) Allergy (Intermediate, Verified 10/16/24 10:40) Swelling sulfur Allergy (Intermediate, Verified 10/16/24 10:40) swelling Iodinated Contrast Media [Iodinated Contrast Media - IV Dye] Allergy (Mild, Verified 10/16/24 10:40) Patient described tongue thickness HPI EP pain on both ears HPI Details 34-year-old female patient presents to the walk-in clinic today with report of bilateral ear pressure for the last 2 months. This has been on an off. She states that it gets worse when her sinus pressure is worsened. Denies any fever or chills. Denies any other sick symptoms. Has not taken anything for this. [facility] Medical History Physical exam Morbid obesity Cough Sinusitis Eczema Obesity Surgical History History of total abdominal hysterectomy Hx of tubal ligation Previous section Family History Father No problems noted. Mother Lupus Family/Other FH: mental illness Mental health disorder Daughter In good health Sister In good health Brother In good health Social History Housing: House Alcohol intake: never Patient Tobacco Use Status: Never used Tobacco e-Cigarette/Vaping Use: Never Used Second Hand Smoke Exposure: No service: No Current occupational status: unemployed Cognitive needs: No Hearing needs: No Vision needs: No Female Reproductive History Menstrual Age of Menarche: 10 Review of Systems Const All systems reviewed & are unremarkable except as noted in HPI and below Physical Exam Vital Signs: Last Vital Signs Temp 97.6 F 10/16/24 10:39 Pulse 82 10/16/24 10:39 BP 136/84 10/16/24 10:39 Pulse Ox 98 10/16/24 10:39 Oxygen Delivery Method Room Air 10/16/24 10:39 BMI result Body Mass Index 43.6 Const General: cooperative, healthy appearing, comfortable and no acute distress HEENT Head: Yes normal to inspection Ears: hearing grossly normal bilaterally, external ears normal, TM's normal bilaterally and EAC's normal General nose exam: Normal external nose present, Normal nares present and Normal nasal mucous membranes and turbinates present Face and sinus: Yes normal facial exam and Yes sinuses nontender Mouth: Normal oral and palatal mucosa present Throat: Yes posterior oropharynx normal Neck Neck: Yes no lymphadenopathy Resp Effort & Inspection: normal respiratory effort Auscultation: clear to auscultation bilaterally Cardio Rate: regular rate Rhythm: regular rhythm Skin General skin exam: no rashes or lesions noted Extrem General: Yes capillary refill normal and Yes no clubbing, cyanosis or edema Psych Appearance: grossly normal Mental Status: mental status grossly normal Speech and movement: Normal speech and movement present Assessment & Plan Assessment & Plan (1) Sinus pressure: Code(s): J34.89 - Other specified disorders of nose and nasal sinuses Plan: Patient has some minor sinus pressure, however exam and ear assessments are normal. I discussed this with patient. I recommended a decongestant, to see if this is helpful for her sensation of pressure in her ears/sinuses. She is going to utilize one [id number]. We discussed that if symptoms worsen, or if she develops any ear pain/fever, or any troublesome symptoms, she can return to the clinic for further evaluation or follow-up with PCP Dr. Palmer. She verbalizes understanding and agrees to plan. Coding Level of Care Code Est Pt Level 3 (71435) Diagnoses Sinus pressure J34.89
--- OUTSIDE RECORDS SUMMARY | 2024-10-16 11:29 | XMS_ITS | Clinical Summary ---
Author Organization [facility] Address [address] [place] [address] Care Team Providers Care Training Manager Name Role Phone Kim Dawson MD Primary Care Provider [phone] Surgical History Surgery Date Site/Laterality Comments COLPOSCOPY 09/2017 PROCEDURE: MT COLPOSCOPY ENTIRE VAGINA W/VAGINA/CERVIX BX SECTION PROCEDURE: MT DELIVERY ONLY TUBAL LIGATION PROCEDURE: HISTORICAL TUBAL [...] age to complete this topic Care Teams Training Manager Relationship Specialty Start Date End Date Kim Dawson MD [address] [place] [address] , [address] Physician Associ D/B/A: [facility] JUYD Sommer PCP - General Internal Medicine 07/03/19
--- OUTSIDE RECORDS SUMMARY | 2024-10-16 11:29 | XMS_ITS | Clinical Summary ---
Author Organization [facility] Address [address] [place] [address] Phone Care Team Providers Care Meter Tester Primary Name Role Phone Kim Morgan MD Primary Care Provider [phone] Allergies Active Allergy Reactions Criticality Noted Date [...] (#1) 2024 05/21/2019 Insurance MEDICAID Care Teams Meter Tester Primary Relationship Specialty Start Date End Date Kim Morgan MD [address] [place], [place] PCP - General Internal Medicine 03/22/24
== END 2024-10-16 11:40 | disposition home or self-care (01) ==
PROVIDERS: PCP Internal Medicine; Visit Provider Nurse Practitioner Family
DX: J34.89 Other specified disorders of nose and nasal sinuses (principal)

== ENCOUNTER → 2024-10-16 10:00 | Outpatient (BNVA) | payer OTHER, SELFPAY | PROVIDERS: PCP Internal Medicine | DX: J34.89 Other specified disorders of nose and nasal sinuses (principal) | CPT/HCPCS: 99212 ==

== ENCOUNTER 2024-11-04 08:24 | Day surgery (SDC) | payer OTHER, SELFPAY ==
[2024-10-31 11:38] VITALS: BMI 43.3
--- NOTE | 2024-10-31 13:27 | HO.ANESPROP2 ---
Documented by User: Lois Gastelum NP 10/31/24 13:28 HPI - Anesthesia Eval Consult details Narrative: 34yo F for Repair Hernia Incisional Reducible with mesh BMI 43 PMFSH Active Problems Active Problems: All Active Problems Incisional hernia (Acute) Umbilical hernia (Acute) Dysgerminoma of ovary (Acute) Neck pain (Acute) Pelvic mass (Acute) Hx of tubal ligation (Acute) History of irregular menstrual cycles (Acute) History of irregular menstrual cycles (Acute) Encounter for gynecological examination with Papanicolaou smear of cervix (Acute) Abdominal mass (Acute) Screening for cervical cancer (Acute) Acute streptococcal pharyngitis (Acute) Eye exam, routine (Acute) Physical exam (Acute) Morbid obesity (Acute) Upper respiratory tract infection (Acute) Cough (Acute) Sinusitis (Acute) Eczema (Acute) Obesity (Acute) Past Medical History Medical History Cancer Physical exam Morbid obesity Cough Sinusitis Eczema Obesity Family History Family History Father No problems noted. Mother Lupus Family/Other FH: mental illness Mental health disorder Daughter In good health Sister In good health Brother In good health Surgical History Surgical History History of total abdominal hysterectomy Hx of tubal ligation Previous section Social History Social History Housing: House Alcohol intake: never Patient Tobacco Use Status: Never used Tobacco e-Cigarette/Vaping Use: Never Used Second Hand Smoke Exposure: No service: No Current occupational status: unemployed Cognitive needs: No Hearing needs: No Vision needs: No Meds Allergies Allergy/AdvReac Type Severity Reaction Status Date / Time aspirin [Aspirin] Allergy Intermediate swelling Verified 10/16/24 10:40 Sulfa (Sulfonamide Allergy Intermediate Swelling Verified 10/16/24 10:40 Antibiotics) sulfur Allergy Intermediate swelling Verified 10/16/24 10:40 Iodinated Contrast Media Allergy Mild Patient Verified 10/16/24 10:40 [Iodinated Contrast Media - described IV Dye] tongue thickness Exam Height,Weight and Vital Signs: Height 5 ft 6 in Weight 121.733 kg Assessment and Plan Assessment Anesthesia Assessment: Chart Reviewed Documented by User: Imelda Ames MD 11/04/24 11:02 PMFSH Active Problems Active Problems: All Active Problems Incisional hernia (Acute) Umbilical hernia (Acute) Dysgerminoma of ovary (Acute) Neck pain (Acute) Pelvic mass (Acute) Hx of tubal ligation (Acute) History of irregular menstrual cycles (Acute) Encounter for gynecological examination with Papanicolaou smear of cervix (Acute) Abdominal mass (Acute) Screening for cervical cancer (Acute) Acute streptococcal pharyngitis (Acute) Morbid obesity (Acute) BMI 43.6 Cough (Acute) Sinusitis (Acute) Eczema (Acute) Patient has not had a hysterectomy- just left ovariectomy for malignant tumor Past Medical History Medical History Cancer Physical exam Morbid obesity Cough Sinusitis Eczema Obesity Family History Family History Father No problems noted. Mother Lupus Family/Other FH: mental illness Mental health disorder Daughter In good health Sister In good health Brother In good health Family history of problems with anesthesia: No Surgical History Surgical History History of total abdominal hysterectomy Hx of tubal ligation Previous section History of Problems with Anesthesia: No Social History Social History Housing: House Alcohol intake: never Patient Tobacco Use Status: Never used Tobacco e-Cigarette/Vaping Use: Never Used Second Hand Smoke Exposure: No service: No Current occupational status: unemployed Cognitive needs: No Hearing needs: No Vision needs: No Meds Allergies Allergy/AdvReac Type Severity Reaction Status Date / Time aspirin [Aspirin] Allergy Intermediate swelling Verified 10/16/24 10:40 Sulfa (Sulfonamide Allergy Intermediate Swelling Verified 10/16/24 10:40 Antibiotics) sulfur Allergy Intermediate swelling Verified 10/16/24 10:40 Iodinated Contrast Media Allergy Mild Patient Verified 10/16/24 10:40 [Iodinated Contrast Media - described IV Dye] tongue thickness Exam Height,Weight and Vital Signs: Height 5 ft 6 in Weight 121.733 kg Vital Signs Temp Pulse Resp BP Pulse Ox O2 Del Method 11/04/24 08:34 98.4 F 74 18 145/76 H 97 Room Air Airway Mallampati Class: III (Small mouth opening) TM Dist: >3cm Neck ROM: Full Loose/Missing/Broken Teeth: No Heart: RRR Lungs: CTAB. Diminished Assessment and Plan Assessment Anesthesia Assessment: Anesthesia Plan Discussed and Chart Reviewed Final Anesthetic Review Family History of Problems with Anesthesia: No History of Problems with Anesthesia: No NPO: Yes ASA Class: III Final Preanesthetic Review: No Changes in Pt Med Stat, Meds/Allgs Chart Reviewed, Consent Obtained/Reviewed and Anes Risks/Benef Reviewed Patient Risk: Intermediate Procedure Risk: Intermediate Assessment/Block/Sedation in SS: Assess/Block/Sedation-SS Anesthetic Plan Anesthetic Plan: GA Disposition: Standard PACU
[2024-11-04] VITALS (10 sets, daily range): BP systolic 109–145; BP diastolic 54–85; PULSE 74–89; RESP 14–22; TEMP 36.6–36.9; O2SAT 94–100; BMI 43.6
[2024-11-04] MEDS: Lactated Ringers 1,000 ML 100 ML IVCONT (08:57)
--- NOTE | 2024-11-04 09:16 | MHC.SHP ---
Pre-Procedural Eval Section A - 24 Hr Update-Section A only Date of Service: 11/04/24 The patient is an INPATIENT: No Changes since office visit: Yes Patient answered all questions; No Cold of Flu in the past 2 weeks, No New Medical Problems and No Changes in Medication The patient has been examined within 24 hours of the surgical procedure. The History & Physical has been completed within 30 days and I have reviewed it.: Yes Section B - Complete if H&P > 30 days Chief Complaint: Incisional hernia without obstruction or gangrene Allergies: Allergies Allergy/AdvReac Type Severity Reaction Status Date / Time aspirin [Aspirin] Allergy Intermediate swelling Verified 10/16/24 10:40 Sulfa (Sulfonamide Allergy Intermediate Swelling Verified 10/16/24 10:40 Antibiotics) sulfur Allergy Intermediate swelling Verified 10/16/24 10:40 Iodinated Contrast Media Allergy Mild Patient Verified 10/16/24 10:40 [Iodinated Contrast Media - described IV Dye] tongue thickness Plan Diagnosis/Plan: Unchanged I have reviewed the history and physical and performed a pertinent physical examination on my patient. No changes have occurred unless specified. Time Spent With Patient Time: Total time managing care of this patient today ____ minutes.
[2024-11-04] MEDS: ceFAZolin Sodium/Dextrose,Iso 2 GM/50 ML PIGGYBACK IV (10:02)
--- NOTE | 2024-11-04 11:02 | P.OP_ITS ---
Operative Note Operative Note Date of Service: 11/04/24 Narrative: Preoperative diagnosis: Incisional hernia upper abdomen, reducible Postoperative diagnosis: Same Procedure: Repair of reducible incisional hernia with mesh Surgeon: Armin Sams MD Hvac Service Technician: Marika Gonzalez PA-C; KADI Araya Anesthesia: General LMA Indications for procedure: 34-year-old female patient presenting with a previous history of total abdominal hysterectomy with bilateral salpingo oophorectomy for ovarian cancer presenting now with a palpable lump in the upper abdomen above the umbilicus at the upper end of her incision. She reports discomfort when the lump is distended. Operative findings: Patient found to have a 5 cm fascial defect repaired using an 8 cm round Ventralex mesh Specimen: Hernia sac Estimated blood loss: 10 mL Complications: None Procedure details: Patient was brought to the OR and placed in a supine position. After administering general anesthesia the patient's abdomen was prepped with ChloraPrep and draped in a sterile fashion. A surgical time-out was called the consent confirmed. Patient received preoperative antibiotics and Venodyne boots were in place. Local anesthesia was applied in the midline from just below the umbilicus to just above the umbilicus. Incision was then made measuring approximately 8 cm and carried out through subcutaneous tissue up to the hernia sac. The hernia sac was then dissected circumferentially down to the fascial defect. The umbilical skin was elevated off the abdominal wall. The sac was then excised circumferentially. A defect measuring approximately 5 cm was identified. Fascial edges were further defined using electrocautery. An 8 cm round Ventralex mesh was then deployed. This was secured in 4 quadrants using a 0 Tycron suture. The mesh was further incorporated into the abdominal wall using AbsorbaTack tacks circumferentially. Fascia was then closed over the mesh using [id number] 0 Tycron sutures. Additional local was infiltrated around the muscular tissue near the mesh. Wounds were irrigated with saline solution and suctioned dry. Umbilical skin was reattached to the fascia using a 3-0 Polysorb suture. Subcutaneous tissue and dermis were then reapproximated using interrupted 3-0 Polysorb sutures. Skin was closed using a running subcuticular 4-0 Polysorb suture. Steri-Strips, 4 x 4 gauze and Tegaderm were then applied. The patient tolerated the procedure well. Sponge, instrument, needle counts reported as correct. The patient was transferred to PACU in stable condition.
[2024-11-04] MEDS: HYDROmorphone HCl 0.5 MG/0.5 ML SYRINGE 0.25 MG IVPUSH ×6 (11:30→12:05)
== END 2024-11-04 13:23 | disposition home or self-care (01) ==
PROVIDERS: PCP Internal Medicine; Visit Provider Surgery
PROC: (CPT 49593; principal; 2024-11-04 10:30)
DX: K43.2 Incisional hernia without obstruction or gangrene (principal); E66.01 Morbid (severe) obesity due to excess calories; Z68.41 Body mass index [BMI] 40.0-44.9, adult; L30.9 Dermatitis, unspecified; J32.9 Chronic sinusitis, unspecified; R05.9 Cough, unspecified; Z85.43 Personal history of malignant neoplasm of ovary; Z92.21 Personal history of antineoplastic chemotherapy; Z90.710 Acquired absence of both cervix and uterus; Z90.722 Acquired absence of ovaries, bilateral; Z88.2 Allergy status to sulfonamides; Z88.6 Allergy status to analgesic agent; Z91.041 Radiographic dye allergy status; Z56.0 Unemployment, unspecified
CPT/HCPCS: 49593; 88302; C1781; C1889; J0690; J1100; J1171; J2003; J2250; J2405; J2704; J2795; J3010

== ENCOUNTER → 2024-11-04 08:24 | Outpatient (BNV) | payer OTHER, SELFPAY | PROVIDERS: PCP Internal Medicine; Visit Provider Surgery | DX: K43.2 Incisional hernia without obstruction or gangrene (principal) | CPT/HCPCS: 49593 ==

== ENCOUNTER 2024-11-14 09:14 | Outpatient (AMB) | payer OTHER, SELFPAY ==
--- NOTE | 2024-11-14 09:17 | A.OFFVIS_ITS ---
Vital Signs 11/14/24 09:26 Height 5 ft 6 in Weight 266 lb BMI 42.9 BP 139/87 Blood Pressure Location Lt brachial Position Sitting Pulse 89 Intake Visit Reasons: S/P incisional hernia w/mesh Intake Note: Patient is seen in office for post op assessment post Repair of reducible incisional hernia with mesh. Pt c/o: admits to sore, tender and bruise, denies redness, discharge or other concerns surgery:11/04/24 Banding Machine Operator Required: Yes Banding Machine Operator Language: Intervention Specialist Services: Banding Machine Operator Present Banding Machine Operator Name: Isis CHANDLER Information Interpreted: non-clinical & clinical Accompanied by: Self / Same As Patient Allergies aspirin [Aspirin] Allergy (Intermediate, Verified 11/14/24 09:25) swelling Sulfa (Sulfonamide Antibiotics) Allergy (Intermediate, Verified 11/14/24 09:25) Swelling sulfur Allergy (Intermediate, Verified 11/14/24 09:25) swelling Iodinated Contrast Media [Iodinated Contrast Media - IV Dye] Allergy (Mild, Verified 11/14/24 09:25) Patient described tongue thickness HPI Comments Details: 34-year-old female presenting with post-operative follow-up concerns following a large hernia repair. Initially, she experienced significant pain during her recovery, exacerbated by the use of oxycodone, which led to chills and fainting- like episodes due to its consumption on an empty stomach. The surgical intervention involved the use of a large mesh to address a hernia that was larger than expected. Since the procedure, the patient has noticed a reduction in the size of the previous lump at the incision site, and her condition has stabilized without further need for pain medication. She is currently fu nctioning well in daily activities, although she is instructed to adhere to activity restrictions to facilitate healing. The patient previously underwent an abdominal hysterectomy with bilateral salpi mcelroy oophorectomy for ovarian cancer on January 18, 2024, followed by chemotherapy. She subsequently detected a lump above the umbilicus, which exacerbated causing discomfort, leading to surgical repair on November 04, 2024. The repair addressed a 5 cm fascial defect using an 8 cmround Ventralex mesh. [facility] Medical History Cancer Physical exam Morbid obesity Cough Sinusitis Eczema Obesity Surgical History History of incisional hernia repair (11/04/24) History of total abdominal hysterectomy Hx of tubal ligation Previous section Family History Father No problems noted. Mother Lupus Family/Other FH: mental illness Mental health disorder Daughter In good health Sister In good health Brother In good health Social History Housing: House Alcohol intake: never Patient Tobacco Use Status: Never used Tobacco e-Cigarette/Vaping Use: Never Used Second Hand Smoke Exposure: No service: No Current occupational status: unemployed Cognitive needs: No Hearing needs: No Vision needs: No Female Reproductive History Menstrual Age of Menarche: 10 Physical Exam Const General: no acute distress Nutritional Appearance: well nourished Orientation/consciousness: patient oriented x3 Resp Effort & Inspection: normal respiratory effort GI Other: Midline periumbilical incision is clean, dry, and intact with intact Steri- Strips with no evidence of hernia recurrence or infection. Neuro General: patient oriented x3 Extrem Other: No edema Assessment & Plan Assessment & Plan (1) Incisional hernia: Code(s): K43.2 - Incisional hernia without obstruction or gangrene Category: Medical Qualifiers: Obstruction and gangrene presence: without obstruction or gangrene Qualified Code(s): K43.2 - Incisional hernia without obstruction or gangrene Plan 34-year-old female patient returning 1 week following repair of an incisional hernia with mesh. She tolerated the procedure well and her wounds are healing nicely without evidence of infection. She still has some very incisional soreness which may be due to the size of the hernia repair. I recommended continuing avoidance of lifting greater than 10 lb for the next month. She may begin to drive in his encouraged to walk daily. She will follow up in 1 week for wound check. Coding Level of Care Code Est Pt Level 2 (33055) Diagnoses Incisional hernia, without obstruction or gangrene K43.2 Obstruction and gangrene presence: without obstruction or gangrene
[2024-11-14 09:26] VITALS: BP 139/87; PULSE 89; BMI 42.9
--- OUTSIDE RECORDS SUMMARY | 2024-11-14 10:24 | XMS_ITS | Clinical Summary ---
Author Organization [facility] Address [address] [place] [address] Care Team Providers Care Vending Machine Filler Name Role Phone Kim Dawson MD Primary Care Provider [phone] Surgical History Surgery Date Site/Laterality Comments COLPOSCOPY 09/2017 PROCEDURE: [place] COLPOSCOPY ENTIRE VAGINA W/VAGINA/CERVIX BX SECTION PROCEDURE: [place] DELIVERY ONLY TUBAL LIGATION PROCEDURE: HISTORICAL TUBAL LIGATION Medical History Medical History Date Comments Phlebitis of deep vein of th igh, left (CMS/HCC V24, CMS/HCC V28) 03/22/2018 DX:Phlebitis of deep v ein of thigh, left (HCC); COMMENT: Superficial phlebitis [...] Influencers of Health Screening 06/28/2022 COVID-19 Vaccine ( - 2023-2 5 season) 2024 Influenza Vaccine (Season Ended) 2025 05/21/2019 DTaP,Tdap,and Td Vaccines (3 - Td [...] age to complete this topic Meningococcal B Vaccine Aged Out No l onger eligible based on patient's age to complete [...] age to complete this topic Care Teams Vending Machine Filler Relationship Specialty Start Date End Date Kim Dawson MD [address] [place] [address] , [address] [place] [address] Physician Associ D/B/A: [facility] JUDY Sommer PCP - General Internal Medicine 07/03/19
--- OUTSIDE RECORDS SUMMARY | 2024-11-14 10:24 | XMS_ITS | Clinical Summary ---
Author Organization [facility] Address [address] [place] [address] Phone Care Team Providers Care Septic Cleaner Name Role Phone Kim Morgan MD Primary Care Provider [phone] Allergies Active Allergy Reactions Criticality Noted Date [...] Due Date Last Done Comments Hepatitis B Vaccine (1 of 3 - 19+ 3-dose series) 07/31 Pneumococcal Vaccine: Peds ( 0 to 5 Years) and At-Risk Patients (6 to 49 Years) (1 of 2 - PCV) 2007 Influenza Vaccine (Season Ended) 2025 05/21/20 19 Insurance Medicaid Care Teams Septic Cleaner Relationship Specialty Start Date End Date Kim Morgan MD [address] [place], [place] PCP - General Internal Medicine 03/22/24
== END 2024-11-14 09:33 | disposition home or self-care (01) ==
LOC: HO.HGS 09:15
PROVIDERS: PCP Internal Medicine; Visit Provider Surgery
DX: K43.2 Incisional hernia without obstruction or gangrene (principal)
CPT/HCPCS: 99212

== ENCOUNTER → 2024-11-14 09:14 | Outpatient (BNVA) | payer OTHER, SELFPAY | PROVIDERS: PCP Internal Medicine; Visit Provider Surgery | DX: K43.2 Incisional hernia without obstruction or gangrene (principal) | CPT/HCPCS: 99212 ==

== ENCOUNTER 2024-12-10 09:15 | Outpatient (AMB) | payer OTHER, SELFPAY ==
--- NOTE | 2024-12-10 09:17 | MHC.OFFVIS ---
Vital Signs 12/10/24 09:22 Height 5 ft 6 in Weight 274 lb 4 oz BMI 44.3 BP 125/73 Blood Pressure Location Lt brachial Position Sitting Pulse 74 Intake Visit Reasons: one month post incisional hernia w/mesh Intake Note: Patient is seen in office for one month follow up visit, post incisional hernia repair. Pt c/o: continued lump in the area, discomfort specially when coughing, denies pain, discharge or other concerns Shell Reprint Operator Required: Yes Shell Reprint Operator Language: Health Unit Clerk Services: Shell Reprint Operator Present Shell Reprint Operator Name: Isis CHANDLER Information Interpreted: non-clinical & clinical Metallurgical Technician: Metallurgical Technician Present Accompanied by: Self / Same As Patient Allergies aspirin [Aspirin] Allergy (Intermediate, Verified 12/10/24 09:27) swelling Sulfa (Sulfonamide Antibiotics) Allergy (Intermediate, Verified 12/10/24 09:27) Swelling sulfur Allergy (Intermediate, Verified 12/10/24 09:27) swelling Iodinated Contrast Media [Iodinated Contrast Media - IV Dye] Allergy (Mild, Verified 12/10/24 09:27) Patient described tongue thickness HPI Comments Details: 34-year-old female patient returning 1 month following repair of a incisional hernia performed on 11/04/2024. Patient was found to have a 5 cm defect repaired with an 8 cm round Ventralex mesh. She reports feeling a lump in the incision which is not tender to palpation she is concerned about a recurrent hernia. She recently was doing a significant amount of coughing and feels this may have caused the lump. Denies any nausea, vomiting, or bowel changes. [facility] Medical History Cancer Physical exam Morbid obesity Cough Sinusitis Eczema Obesity Surgical History History of incisional hernia repair (11/04/24) History of total abdominal hysterectomy Hx of tubal ligation Previous section Family History Father No problems noted. Mother Lupus Family/Other FH: mental illness Mental health disorder Daughter In good health Sister In good health Brother In good health Social History Housing: House Alcohol intake: never Patient Tobacco Use Status: Never used Tobacco e-Cigarette/Vaping Use: Never Used Second Hand Smoke Exposure: No service: No Current occupational status: unemployed Cognitive needs: No Hearing needs: No Vision needs: No Female Reproductive History Menstrual Age of Menarche: 10 Review of Systems Const All systems reviewed & are unremarkable except as noted in HPI and below Physical Exam Const General: no acute distress Nutritional Appearance: well nourished Orientation/consciousness: patient oriented x3 Resp Effort & Inspection: normal respiratory effort GI Other: Well-healed midline incision located around the umbilicus. A small area of residual scar tissue was noted at approximately the midpoint of the incision. No changes are noted with a size with Valsalva maneuvers. The site is nontender to palpation. Findings are consistent with resolving scar tissue. No infection or seroma is identified. Neuro General: patient oriented x3 Extrem Other: No edema Assessment & Plan Assessment & Plan (1) Incisional hernia: Code(s): K43.2 - Incisional hernia without obstruction or gangrene Category: Medical Qualifiers: Obstruction and gangrene presence: without obstruction or gangrene Qualified Code(s): K43.2 - Incisional hernia without obstruction or gangrene Plan 34-year-old female patient returning 1 month following repair of an incisional hernia performed on 11/04/2024. Her wounds are healing nicely with no evidence of wound infection or hernia recurrence. She may resume normal activity without restrictions and should follow up as needed. Coding Level of Care Code Est Pt Level 3 (16900) Diagnoses Incisional hernia, without obstruction or gangrene K43.2 Obstruction and gangrene presence: without obstruction or gangrene
[2024-12-10 09:22] VITALS: BP 125/73; PULSE 74; BMI 44.3
--- OUTSIDE RECORDS SUMMARY | 2024-12-10 09:42 | XMS_ITS | Clinical Summary ---
Author Organization [facility] Address [address] [place] [address] Phone Care Team Providers Care Birthing Nurse Name Role Phone Kim Morgan MD Primary Care Provider [phone] Allergies Active Allergy Reactions Criticality Noted Date [...] 2025 05/21/20 19 Insurance Medicaid Care Teams Birthing Nurse Relationship Specialty Start Date End Date Kim Morgan MD [address] [place], [place] PCP - General Internal Medicine 03/22/24
--- OUTSIDE RECORDS SUMMARY | 2024-12-10 09:42 | XMS_ITS | Clinical Summary ---
Author Organization [facility] Address [address] [place] [address] Care Team Providers Care Quirk Sander Name Role Phone Kim Dawson MD Primary Care Provider [phone] Surgical History Surgery Date Site/Laterality Comments COLPOSCOPY 09/2017 PROCEDURE: [place] COLPOSCOPY ENTIRE VAGINA W/VAGINA/CERVIX BX SECTION PROCEDURE: [place] DELIVERY ONLY TUBAL LIGATION PROCEDURE: HISTORICAL TUBAL [...] Cervical Cancer Screening: P ap Smear 2009 COVID-19 Vaccine (2023-2 5 season) 2024 Influenza Vaccine (Season Ended) [...] age to complete this topic Care Teams Quirk Sander Relationship Specialty Start Date End Date Kim Dawson MD [address] [place] [address] , [address] [facility] D/B/A: [facility] JUDY Sommer PCP - General Internal Medicine 07/03/19
== END 2024-12-10 09:48 | disposition home or self-care (01) ==
LOC: HO.HGS 09:15
PROVIDERS: PCP Internal Medicine; Visit Provider Surgery
DX: K43.2 Incisional hernia without obstruction or gangrene (principal)
CPT/HCPCS: 99213

== ENCOUNTER → 2024-12-10 09:15 | Outpatient (BNVA) | payer OTHER, SELFPAY | PROVIDERS: PCP Internal Medicine; Visit Provider Surgery | DX: K43.2 Incisional hernia without obstruction or gangrene (principal) | CPT/HCPCS: 99212 ==

== ENCOUNTER 2025-01-01 10:51 | Outpatient (AMB) | payer OTHER, SELFPAY ==
--- NOTE | 2025-01-01 11:00 | MHC.PC.OV ---
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: No Accompanied by: Self / Same As Patient Allergies aspirin [Aspirin] Allergy (Intermediate, Verified 01/01/25 11:22) swelling Sulfa (Sulfonamide Antibiotics) Allergy (Intermediate, Verified 01/01/25 11:22) Swelling sulfur Allergy (Intermediate, Verified 01/01/25 11:22) swelling Medication List - Last Reconciled 01/01/25 by Kim Dawson MD No Known Home Meds Tobacco use date assessed: 01/01/25 Dental Screening Dental Screen Date: 01/01/25 Did you have a dental visit in the last 12 months?: Yes Did you have a dental problem in the last 6 months where you did not have access to dental care?: No Was dental information given to patient?: Patient has dentist HPI HPI Comments History of Present Illness Details The patient is a 34-year-old female presenting for her annual physical examination. She has a significant history of ovarian dysgerminoma, treated with chemotherapy, last session noted in April 2024. Surgical history is notable for a hysterectomy, inguinal hernia repair, tubal ligation, and section. She has no ongoing symptoms from these procedures. Her BMI indicates morbid obesity, and she acknowledges stable weight compared to her last visit. She denies chest pain, shortness of breath, fever, or cough. Constipation is occasionally experienced, and lifestyle changes including increased fiber and hydration were suggested. There is no use of tobacco or alcohol. Familial medical history reveals a mother with lupus. The patient adheres to regular oncology follow-ups due to her past cancer history. - Received tetanus vaccine in 2018, next due in 2028) - Recommend increased dietary fiber and hydration for constipation management - Encouraged regular physical activity - Ongoing oncology follow-up every 6 months for cancer history PFSH Medical History (Updated 01/01/25 @ 11:35 by Kim Dawson MD) Cancer Physical exam Morbid obesity Cough Sinusitis Eczema Obesity Surgical History History of incisional hernia repair (11/04/24) History of total abdominal hysterectomy Hx of tubal ligation Previous section Family History Father No problems noted. Mother Lupus Family/Other FH: mental illness Mental health disorder Daughter In good health Sister In good health Brother In good health Social History Housing: House Alcohol intake: never Patient Tobacco Use Status: Never used Tobacco e-Cigarette/Vaping Use: Never Used Second Hand Smoke Exposure: No service: No Current occupational status: unemployed Cognitive needs: No Hearing needs: No Vision needs: No Female Reproductive History Menstrual Age of Menarche: 10 Questionnaire PHQ-9 Over the last 2 weeks, how often have you been bothered by any of the following problems? 1. Little interest or pleasure in doing things: not at all 2. Feeling down, depressed, or hopeless: not at all 3. Trouble falling or staying asleep, or sleeping too much: not at all 4. Feeling tired or having little energy: not at all 5. Poor appetite or overeating: not at all 6. Feeling bad about yourself - or that you are a failure or have let yourself or your family down: not at all 7. Trouble concentrating on things, such as reading the newspaper or watching television: not at all 8. Moving or speaking so slowly that other people could have noticed. Or the opposite - being so fidgety or restless that you have been moving around a lot more than usual: not at all 9. Thoughts that you would be better off or of hurting yourself in some way: not at all Total score: 0 Depression Screening Interpretation: Negative Depression Screening Done: Yes 52714 - PHQ-9 Billing: Yes Source: Developed by Drs. Ephraim Danielson, Kay Hall, Ben Arellano and colleagues, with an educational marlon from [employer]. Thrive Questionnaire Date Thrive assessed: 09/16/24 I am a: Patient What is your living situation today?: I have a steady place to live Within the past 12 months, did the food you bought not last and you didn't have the money to get more?: Never true Within the past 12 months, did you worry whether your food would run out before you got money to buy more?: Never true Do you have trouble paying for medicines?: No Do you have trouble getting transportation to medical appointments?: No Do you have trouble paying your heating and electricity bill?: I choose not to answer this question Do you have trouble taking care of your child, family member or friend?: No Do you have trouble with day-to-day activities such as bathing, preparing meals, shopping, managing finances, etc.?: No Are you currently unemployed and looking for a job?: Yes Are you interested in more education?: Yes Please select the resources that you would like help with: Education Currently or been in a relationship where the following occur: No concerns reported THRIVE Score: 0 AUDIT C Alcohol Use Questionnaire (AUDIT-C) 1. How often do you have a drink containing alcohol?: Never Total Score: 0 Score Reviewed/Action Taken: No DEENA-7 AMB Questionnaire DEENA-7 Date DEENA - 7 assessed: 09/16/24 Feeling nervous, anxious, or on edge: 0 = Not at all Not being able to stop or control worryin = Not at all Worrying too much about different things: 0 = Not at all Trouble relaxin = Not at all Being so restless that it is hard to sit still: 0 = Not at all Becoming easily annoyed or irritable: 0 = Not at all Feeling afraid as if something awful might happen: 0 = Not at all Total DEENA-7 score (0-4 normal; 5-9 mild; 10-14 moderate; 15-21 severe): 0 Source: Developed by Drs. Ephraim Danielson, Kay Hall, Ben Arellano and colleagues, with an educational marlon from [employer]. DEENA-7 Assessment Billing DEENA-7 Assessment Tool: DEENA-7 Assessment 22438 Review of Systems Const All systems reviewed & are unremarkable except as noted in HPI and below Card Denies chest pain at rest, Denies chest pain with activity, Denies edema, Denies irregular heart rhythm, Denies claudication, Denies dyspnea, Denies dyspnea on exertion, Denies orthopnea, Denies paroxysmal nocturnal dyspnea and Denies slow heart rate Resp Denies cough, Denies dyspnea and Denies dyspnea on exertion GI Denies abdominal pain, Denies change in bowel habits, Denies excessive flatus, Denies nausea and Denies vomiting Denies urinary incontinence, Denies urinary hesitancy and Denies urinary urgency Musc Denies abnormal gait, Denies atrophy, Denies deformity and Denies limited range of motion Skin/Breast Denies bleeding lesions, Denies changing lesions and Denies rash Neuro Denies abnormal gait, Denies behavioral changes and Denies lack of coordination Psych Denies behavioral changes Physical exam (Primary Care) Vital Signs: Last Vital Signs BP 120/72 01/01/25 11:01 BMI result Body Mass Index 44.1 Tobacco/Smoking Status: Tobacco use Status Tobacco use date assessed 01/01/25 01/01/25 11:07 Patient Tobacco Use Status Never used Tobacco 01/01/25 11:07 e-Cigarette/Vaping Use Never Used 01/01/25 11:07 PHQ-9: PHQ-9 Score PHQ-9: Total score 0 01/01/25 11:27 Depression Screening Interpretation: Negative Thrive Assessment: Date of Thrive Assessment Date Thrive assessed 09/16/24 01/01/25 11:07 Currently or been in a relationship where the following occur: No concerns reported [facility] Head: Yes normal to inspection, Yes normocephalic and Yes atraumatic Ears: external ears normal Eyes General: appearance normal, both eyes and all related structures Eyelids: Yes eyelids normal Conjunctivae: conjunctivae normal Neck Neck: Yes normal visual inspection and Yes supple Resp Effort & Inspection: normal respiratory effort Auscultation: clear to auscultation bilaterally Cardio Jugular venous distension: no JVD Rate: regular rate Rhythm: regular rhythm Heart sounds: S1 normal heart sound present and S2 normal heart sound present GI Inspection: Yes normal to inspection Palpation (GI): Soft to palpation and nontender Auscultation: normal bowel sounds Skin General skin exam: no rashes or lesions noted Neuro General: no focal motor deficits Extrem General: Yes full ROM Psych Appearance: grossly normal Coding Level of Care Code Est Pt Level 3 (59857) Est Pt Prev Care 18-39y(09520) Diagnoses Physical exam Z00.00 Morbid obesity E66.01 Dysgerminoma of ovary C56.9 Blurry vision H53.8 Neck pain M54.2 Additional Codes EDENA-7 Assessment Billing - DEENA-7 Assessment Tool: DEENA-7 Assessment 48542 ([id number]) PHQ-9 - 97083 - PHQ-9 Billing: Yes ([id number]) Time Spent (min) 36 Assessment & Plan Assessment & Plan (1) Physical exam: Code(s): Z00.00 - Encounter for general adult medical examination without abnormal findings Category: Medical (2) Morbid obesity: Code(s): E66.01 - Morbid (severe) obesity due to excess calories Category: Medical (3) Dysgerminoma of ovary: Code(s): C56.9 - Malignant neoplasm of unspecified ovary Category: Medical (4) Blurry vision: Code(s): H53.8 - Other visual disturbances Category: Medical (5) Neck pain: Code(s): M54.2 - Cervicalgia Category: Medical Plan We addressed the patient's morbid obesity and emphasized lifestyle adjustments to address this challenge. Detailed discussions about her past treatment for ovarian dysgerminoma and her status post-hysterectomy led to confirmation of ongoing regular oncology follow-ups. Allergies were noted for future medical interventions. For constipation, dietary recommendations were made, including increased fiber and hydration. Overall, no acute issues requiring intervention were identified at this visit. Patient was informed and verbally consented to the use of an ambient scribe for clinic note documentation during this visit. During our discussion, I emphasized the importance of managing the patient's obesity with lifestyle modifications, focusing on dietary changes and increased physical activity. We reviewed the history and implications of her cancer treatment and the importance of adhering to regular oncology follow-ups. We elaborated on her specific allergies, ensuring safety in future interventions. The patient understood the necessity of managing her weight and agreed to focus on dietary fiber to alleviate constipation issues. We discussed the current lack of acute symptoms requiring additional investigations or treatment adjustments. Follow-up visits will continue as needed for both general health maintenance and ongoing cancer surveillance. Orders: Orders Comprehensive Abernathy. Panel Fast Today Z00.00 - Encounter for general adult medical examination without abnormal findings Lipid Panel Today Z00.00 - Encounter for general adult medical examination without abnormal findings PT Evaluation and Treatment Today M54.2 - Cervicalgia Referrals Ophthalmology Referral H53.8 - Other visual disturbances Patient Instructions: - Increase dietary fiber intake - Ensure adequate hydration daily - Engage in regular physical activity - Continue regular oncology visits every 6 months for cancer follow-up - Avoid aspirin, sulfate, and contrast due to allergies - Contact the office if any new symptoms arise
[2025-01-01 11:01] VITALS: BP 120/72; BMI 44.1
--- OUTSIDE RECORDS SUMMARY | 2025-01-01 11:46 | XMS_ITS | Clinical Summary ---
Author Organization [facility] Address [address] [place] [address] Phone Care Team Providers Care Utility Bill Complaints Investigator Name Role Phone Kim Morgan MD Primary Care Provider [phone] Allergies Active Allergy Reactions Criticality Noted Date [...] 2025 05/21/20 19 Insurance Medicaid Care Teams Utility Bill Complaints Investigator Relationship Specialty Start Date End Date Kim Morgan MD [address] [place], [place] PCP - General Internal Medicine 03/22/24
== END 2025-01-01 11:37 | disposition home or self-care (01) ==
LOC: HO.HMCH 10:51
PROVIDERS: PCP Internal Medicine; Visit Provider Internal Medicine
DX: Z00.00 Encounter for general adult medical examination without abnormal findings (principal); E66.01 Morbid (severe) obesity due to excess calories; C56.9 Malignant neoplasm of unspecified ovary; Z68.41 Body mass index [BMI] 40.0-44.9, adult; H53.8 Other visual disturbances; M54.2 Cervicalgia

== ENCOUNTER → 2025-01-01 10:51 | Outpatient (BNVA) | payer OTHER, SELFPAY | PROVIDERS: PCP Internal Medicine; Visit Provider Internal Medicine | DX: Z00.00 Encounter for general adult medical examination without abnormal findings (principal); E66.01 Morbid (severe) obesity due to excess calories; K59.00 Constipation, unspecified; H53.8 Other visual disturbances; M54.2 Cervicalgia; Z90.710 Acquired absence of both cervix and uterus; Z85.43 Personal history of malignant neoplasm of ovary | CPT/HCPCS: 96127; 99212; 99395 ==

== ENCOUNTER 2025-01-09 09:23 | Outpatient (REF) | payer OTHER, SELFPAY ==
--- OUTSIDE RECORDS SUMMARY | 2025-01-09 10:13 | XMS_ITS | Clinical Summary ---
Author Organization [facility] Address [address] [place] [address] Phone Care Team Providers Care Home Sales Consultant Name Role Phone Kim Morgan MD Primary Care Provider [phone] Allergies Active Allergy Reactions Criticality Noted Date [...] 2025 05/21/20 19 Insurance Medicaid Care Teams Home Sales Consultant Relationship Specialty Start Date End Date Kim Morgan MD [address] [place], [place] PCP - General Internal Medicine 03/22/24
[2025-01-09 10:16] LABS: Alanine Aminotransferase 21 U/L (0-31); Albumin Level 4.3 g/dL (3.5-5.0); Alkaline Phosphatase 41 U/L (39-117); Anion Gap 8 (12-20); Aspartate Amino Transferase 21 U/L (5-31); Bilirubin Total 0.4 mg/dL (0.0-1.0); Blood Urea Nitrogen 16 mg/dL (9-16); Calcium 8.9 mg/dL (8.4-10.2); Carbon Dioxide 27 mmol/L (22-29); Chloride 107 mmol/L (96-108); Cholesterol 139 mg/dL (<200); Estimated Glomerular Filt Rate > 60; Glucose Fasting 103 mg/dL (60-99); HDL Cholesterol 36 mg/dL (>40); LDL Cholesterol Calculated 87 mg/dL (<100); Potassium 3.9 mmol/L (3.3-5.1); Sodium 138 mmol/L (135-145); Triglycerides 84 mg/dL (<150)
== END 2025-01-09 09:24 | disposition home or self-care (01) ==
LOC: HO.LAB 09:23
PROVIDERS: PCP Internal Medicine; Visit Provider Internal Medicine
DX: Z00.00 Encounter for general adult medical examination without abnormal findings (principal)
CPT/HCPCS: 36415; 80053; 80061

== ENCOUNTER 2025-04-11 09:22 | Outpatient (AMB) | payer OTHER, SELFPAY ==
--- NOTE | 2025-04-11 09:30 | MHC.OFFWIV ---
Intake Vital Signs 04/11/25 09:31 Height 5 ft 6 in Weight 287 lb BMI 46.3 BP 116/82 Blood Pressure Location Lt brachial Position Sitting Pulse 79 Pulse Source Pulse Oximeter Temp 98.0 F Temp Source Oral Pulse Oximetry (%) 98 Oxygen Delivery Method Room Air Intake Visit Reasons: ep pain in both ears Patient Tobacco Use Status: Never used Tobacco Allergies aspirin (Aspirin) Allergy (Intermediate, Verified 04/11/25 09:32) swelling Sulfa (Sulfonamide Antibiotics) Allergy (Intermediate, Verified 04/11/25 09:32) Swelling sulfur Allergy (Intermediate, Verified 04/11/25 09:32) swelling HPI ep pain in both ears HPI Details This is a 34-year-old female patient presents to the walk-in clinic today with a several day history of bilateral ear pain, left greater than right. She reports the sensation fluid in her ears over the last couple of weeks, and more recently pain and some discharge, particularly from her left ear. Denies any fever/chills or recent illnesses. [facility] Medical History Cancer Physical exam Morbid obesity Cough Sinusitis Eczema Obesity Surgical History History of incisional hernia repair (11/04/24) History of total abdominal hysterectomy Hx of tubal ligation Previous section Family History Father No problems noted. Mother Lupus Family/Other FH: mental illness Mental health disorder Daughter In good health Sister In good health Brother In good health Social History Housing: House Alcohol intake: never Patient Tobacco Use Status: Never used Tobacco e-Cigarette/Vaping Use: Never Used Second Hand Smoke Exposure: No service: No Current occupational status: unemployed Cognitive needs: No Hearing needs: No Vision needs: No Female Reproductive History Menstrual Age of Menarche: 10 Review of Systems Const All systems reviewed & are unremarkable except as noted in HPI and below Physical Exam Vital Signs: Last Vital Signs Temp 98.0 F 04/11/25 09:31 Pulse 79 04/11/25 09:31 BP 116/82 04/11/25 09:31 Pulse Ox 98 04/11/25 09:31 Oxygen Delivery Method Room Air 04/11/25 09:31 BMI result Body Mass Index 46.3 Const General: cooperative, healthy appearing, comfortable and no acute distress HEENT Head: Yes normal to inspection Ears: hearing grossly normal bilaterally, TM's normal bilaterally and Abnormal EAC present erythema bilateral and otic discharge clear on the left General nose exam: Normal external nose present Face and sinus: Yes normal facial exam Mouth: Normal oral and palatal mucosa present Throat: Yes posterior oropharynx normal Resp Effort & Inspection: normal respiratory effort Auscultation: clear to auscultation bilaterally Cardio Rate: regular rate Rhythm: regular rhythm Skin General skin exam: no rashes or lesions noted Extrem General: Yes capillary refill normal and Yes no clubbing, cyanosis or edema Psych Appearance: grossly normal Mental Status: mental status grossly normal Speech and movement: Normal speech and movement present Assessment & Plan Assessment & Plan (1) Bilateral otitis externa: Code(s): H60.93 - Unspecified otitis externa, bilateral Qualifiers: Otitis externa type: unspecified type Chronicity: acute Qualified Code(s): H60.503 - Unspecified acute noninfective otitis externa, bilateral Plan: Patient appears to have a mild case of otitis externa, with some canal erythema and discharge, left greater than right. TMs appear normal. I am going to start her on a hydrocortisone/acetic acid ear drop, which we reviewed indications, use, possible side effects of. If she does not improve with treatment, or if her pain worsens or if she develops fevers or other associated symptoms, she should return to the clinic for further evaluation. She verbalizes understanding and agrees to plan. Medications: New hydrocortisone-acetic acid 1-2 % 4 drps otic (ears) TID 10 mL 0RF 7 days H60.90 - Unspecified otitis externa, unspecified ear Coding Level of Care Code Est Pt Level 3 (81800) Diagnoses Acute otitis externa of both ears, unspecified type H60.503 Otitis externa type: unspecified type Chronicity: acute
[2025-04-11 09:31] VITALS: BP 116/82; PULSE 79; TEMP 36.7; O2SAT 98; BMI 46.3
--- OUTSIDE RECORDS SUMMARY | 2025-04-11 10:26 | XMS_ITS | Clinical Summary ---
Author Organization [facility] Address [address] [place] [address] Phone Care Team Providers Care Research Nurse Name Role Phone Kim Morgan MD Primary Care Provider [phone] Allergies Active Allergy Reactions Criticality Noted Date [...] 91 03/22/2024 8:35 AM EDT Temperature 36.6 C (97.9 F) 03/22/2024 8:35 AM EDT Respiratory Rate 16 03/22/2024 8:35 AM EDT [...] of 2 - PCV) 2007 Influenza Vaccine (#1) 2025 05/21/2019 Insurance Medicaid Care Teams Research Nurse Relationship Specialty Start Date End Date Kim Morgan MD [address] [place], [place] PCP - General Internal Medicine 03/22/24
--- OUTSIDE RECORDS SUMMARY | 2025-04-11 10:27 | XMS_ITS | Clinical Summary ---
Author Organization [facility] Address [address] [place] [address] Care Team Providers Care Lumber Tying Machine Operator Name Role Phone Kim Dawson MD Primary Care Provider [phone] Surgical History Surgery Date Site/Laterality Comments COLPOSCOPY [...] Screening: P ap Smear 2009 Depression Screening 2024 COVID-19 Vaccine (2023-2 5 season) 2025 Influenza Vaccine (#1) 2025 05/21/2019 DTaP,Tdap,and Td Vaccines (3 - [...] and At-Risk Patients (6 to 49 Years) Aged Out No longer eligible b ased on patient's age to complete this topic RSV Immunization Patients Under 20 months Aged Out No longer eligible b ased on patient's age to complete this topic Varicella Vaccines Aged Out No longer eligible based on patient's age to complete this topic Care Teams Lumber Tying Machine Operator Relationship Specialty Start Date End Date Kim Dawson MD [address] [place] [address] , [address] [facility] JUDY Sommer PCP - General Internal Medicine 07/03/19
== END 2025-04-11 10:03 | disposition home or self-care (01) ==
PROVIDERS: PCP Internal Medicine; Visit Provider Nurse Practitioner Family
DX: H60.503 Unspecified acute noninfective otitis externa, bilateral (principal)

== ENCOUNTER → 2025-04-11 09:22 | Outpatient (BNVA) | payer OTHER, SELFPAY | PROVIDERS: PCP Internal Medicine; Visit Provider Nurse Practitioner Family | DX: H60.503 Unspecified acute noninfective otitis externa, bilateral (principal) | CPT/HCPCS: 99212 ==